=== PATIENT | male | born 1945 | race African-American/Black ===

== ENCOUNTER 2019-05-25 12:06 | Inpatient (IN) | payer OTHER, MEDICARE ==
[~2019-05-25] VITALS: Ht 177.8 cm; Wt 81.3 kg
[2019-05-25 13:27] LABS: Basophils # (auto) 0.1 uL; Basophils % (auto) 1.8 % (0.0-2.0); Eosinophils # (auto) 0.1 uL; Eosinophils % (auto) 1.4 % (0.0-7.0); Hematocrit 49.8 % (41.0-53.0); Hemoglobin 16.5 g/dL (13.5-17.5); Lymphocytes # (auto) 1.9 uL; Lymphocytes % (auto) 36.6 % (10.0-50.0); Mean Corpuscular Hemoglobin 31.2 pg (28.0-32.0); Mean Corpuscular Volume 94.4 fL (80.0-100.0); Monocytes # (auto) 0.4 uL; Monocytes % (auto) 7.2 % (0.0-12.0); Neutrophils # (auto) 2.7 uL; Nucleated Red Blood Cells % 0.1 %; Platelet Count (auto) 292 10^3/uL (140-450); Red Blood Cells 5.28 10^6/uL (4.5-5.90); Red Cell Distribution Width 14.1 % (11.8-14.3); White Blood Cell 5.1 10^3/uL (4.4-10.8)
[2019-05-25 13:42] LABS: INR 0.95 (0.9-1.15); Partial Thromboplastin Time 29.1 sec (23.64-32.05)
[2019-05-25 13:57] LABS: Anion Gap 9 (5-15); Blood Urea Nitrogen 14 mg/dL (7-18); Calcium 9.3 mg/dL (8.5-10.1); Carbon Dioxide 21 mmol/L (21-32); Chloride 109 mmol/L (98-107); Glucose 126 mg/dL (74-106); Sodium 139 mmol/L (136-145)
[2019-05-25 14:04] LABS: Alanine Aminotransferase 27 U/L (16-61); Alkaline Phosphatase 126 U/L (45-117); Aspartate Aminotransferase 15 U/L (15-37); BUN/Creatinine Ratio 10.8; Bilirubin, Total 0.5 mg/dL (0.2-1.0); GFR African American 69 mL/min; GFR Non-African American 57 mL/min; Total Protein 8.1 g/dL (6.4-8.2)
[2019-05-25] MEDS ORDERED: MORPHINE SULF INJ 2 MG/ML SYRINGE 1ML IV PRN ×2 (14:45)
[2019-05-25] MEDS ORDERED: ONDANSETRON HCL 4 MG/2 ML VIAL IV PRN (14:45)
[2019-05-25] MEDS ORDERED: ASPirin-EC 81 mg tab PO ONE (14:45)
[2019-05-25] MEDS ORDERED: HYDROcodone-ACET 5/325MG TAB PO PRN (14:45)
[2019-05-25] MEDS ORDERED: NITROGLYCERIN 0.4 MG SL TAB SL PRN (14:45)
[2019-05-25] MEDS ORDERED: ACETAMINOPHEN 500 MG TAB PO PRN (14:45)
[2019-05-25 15:09] LABS: Cholesterol 228 mg/dL (< 200); Triglycerides 125 mg/dL (< 150)
[2019-05-25 15:11] LABS: HDL Cholesterol 55 mg/dL (40-59); LDL Cholesterol 162 mg/dL (< 100)
[2019-05-25 15:48] LABS: Alcohol, Urine < 3.0 mg/dL (0-5); Amphetamine Screen, Urine NEGATIVE (NEGATIVE); Barbiturate Scree,Urine NEGATIVE (NEGATIVE); Benzodiazephine Screen, Urine NEGATIVE (NEGATIVE); Cannabinoid Screen, Urine NEGATIVE (NEGATIVE); Cocaine Screen, Urine POSITIVE (NEGATIVE); Opiate Scree,Urine NEGATIVE (NEGATIVE); Phencyclidine Screen, Urine NEGATIVE (NEGATIVE)
[2019-05-25 16:09] LABS: Urine Bacteria NONE SEEN /hpf (None Seen); Urine Blood Negative /uL (Negative); Urine Mucus FEW (None Seen); Urine Specific Gravity 1.012 (1.001-1.035); Urine WBC 1 /hpf (0 - 3)
--- NOTE | 2019-05-25 20:35 | NUR ---
Telemetry admit from [facility] BRENSTEIN admitted to Telemetry unit after hand off tool received. Patient oriented to primary RN, unit, room, bed, and unit policies regarding patient care and visiting hours. Patient now on continuous telemetry monitoring, tele box # 35 and telemetry reading on arrival to unit is Sinus Rhythm 73. Patient weighed by bedscale and encouraged to call if they need something. All questions and concerns addressed, patient verbalized understanding.
[2019-05-25] MEDS: ATORVASTATIN 20 MG TAB PO SCH (21:25)
--- NOTE | 2019-05-25 21:25 | NUR ---
Patient requested to call spouse, Janett for password and patient update at [phone]. Janett verbalized understanding and appreciation.
--- NOTE | 2019-05-25 21:30 | NUR ---
Patient's BP at 160/92 HR 75. COLLISION TECHNICIAN Laguerre at the nurse's station made aware and informed. Per COLLISION TECHNICIAN, will review chart and will put in order. Will continue to monitor.
[2019-05-25] MEDS ORDERED: cloNIDine HCL 0.1 MG TAB PO PRN (22:00)
[2019-05-25 22:11] VITALS: BP 160/92
--- NOTE | 2019-05-26 00:05 | NUR ---
RT NOTE: PT PLACED ON CPAP ORDERED FOR NOC, PT NOT TOLERATING AND WANTED MASK REMOVED. PT ON ROOM AIR SPO2 97% WITH NO DISTRESS. PT WILL NOT TOLERATE CPAP AND REMOVED FROM ROOM
[2019-05-26 05:18] VITALS: BP 136/75
[2019-05-26 06:57] LABS: Basophils # (auto) 0.1 uL; Basophils % (auto) 1.1 % (0.0-2.0); Eosinophils # (auto) 0.1 uL; Eosinophils % (auto) 2.1 % (0.0-7.0); Hematocrit 47.3 % (41.0-53.0); Hemoglobin 15.7 g/dL (13.5-17.5); Lymphocytes # (auto) 2.6 uL; Lymphocytes % (auto) 43.6 % (10.0-50.0); Mean Corpuscular Hemoglobin 31.1 pg (28.0-32.0); Mean Corpuscular Hgb Conc. 33.2 g/dL (32.0-36.0); Mean Corpuscular Volume 93.7 fL (80.0-100.0); Monocytes # (auto) 0.5 uL; Monocytes % (auto) 8.1 % (0.0-12.0); Neutrophils # (auto) 2.6 uL; Neutrophils % (auto) 45.1 % (37.0-80.0); Nucleated Red Blood Cells % 0.1 %; Platelet Count (auto) 293 10^3/uL (140-450); Red Blood Cells 5.05 10^6/uL (4.5-5.90); Red Cell Distribution Width 14.1 % (11.8-14.3); White Blood Cell 5.9 10^3/uL (4.4-10.8)
[2019-05-26 07:27] LABS: Potassium 3.8 mmol/L (3.5-5.1)
[2019-05-26 07:36] LABS: BUN/Creatinine Ratio 14.7
[2019-05-26 08:14] VITALS: BP 137/90
[2019-05-26] MEDS: ASPirin-EC 81 mg tab PO SCH (10:32)
[2019-05-26] MEDS: FAMOTIDINE 20 MG TAB PO SCH (10:33)
[2019-05-26] MEDS: MULTIPLE VITAMINS W/ MINERALS TAB PO SCH (10:33)
[2019-05-26 12:00] VITALS: BP 158/92
[2019-05-26] MEDS ORDERED: CLOPIDOGREL BISULFATE 75 MG TAB PO ONE (13:15)
[2019-05-26] MEDS ORDERED: MULTIPLE VITAMINS W/ MINERALS TAB PO ONE (13:30)
[2019-05-26] MEDS ORDERED: METOPROLOL TARTRATE 25 MG TAB PO ONE (13:30)
[2019-05-26 16:29] VITALS: BP 148/87
--- NOTE | 2019-05-26 19:30 | NUR ---
Opening shift note Patient in bed watching TV alert and oriented x 4, verbally coherent, able to make needs known. Patient's respiration even and unlabored, denies pain or any discomfort at this time. Plan of care discussed, patient verbalized understanding. Will continue to monitor.
[2019-05-26] MEDS: ATORVASTATIN 20 MG TAB PO SCH (21:51)
[2019-05-26] MEDS: METOPROLOL TARTRATE 25 MG TAB PO SCH (21:56)
[2019-05-26 22:00] VITALS: BP 137/79
[2019-05-26] MEDS ORDERED: METOPROLOL TARTRATE 25 MG TAB PO SCH (22:00)
[2019-05-27 05:00] VITALS: BP 125/73
--- NOTE | 2019-05-27 07:30 | NUR ---
Opening Shift Note Assumed care of patient, awake and alert. No S/S of distress/SOB or pain. Instructed on POC and to call for assist PRN. Fall precautions in place per protocol. Will continue to monitor for changes Q1hr and PRN.
[2019-05-27 09:00] VITALS: BP 137/77
[2019-05-27] MEDS: MULTIPLE VITAMINS W/ MINERALS TAB PO SCH (09:51)
[2019-05-27] MEDS: ASPirin-EC 81 mg tab PO SCH (09:52)
[2019-05-27] MEDS: METOPROLOL TARTRATE 25 MG TAB PO SCH ×2 (09:52→21:14)
[2019-05-27] MEDS: CLOPIDOGREL BISULFATE 75 MG TAB PO SCH (09:52)
[2019-05-27] MEDS: FAMOTIDINE 20 MG TAB PO SCH (09:52)
[2019-05-27] MEDS ORDERED: CLOPIDOGREL BISULFATE 75 MG TAB PO SCH (10:00)
[2019-05-27 12:55] VITALS: BP 147/77
[2019-05-27 17:00] VITALS: BP 139/86
--- NOTE | 2019-05-27 19:45 | NUR ---
Opening Shift Note Assumed care of patient, awake and alert. No S/S of distress/SOB or pain. Instructed on POC and to call for assist PRN, will continue to monitor.
[2019-05-27] MEDS: ATORVASTATIN 20 MG TAB PO SCH (21:14)
[2019-05-27 22:00] VITALS: BP 147/95
--- NOTE | 2019-05-28 03:00 | NUR ---
RECEIVED REPORT FROM STEWART MONZON. PT RESTING IN BED, NO S/S DISTRESS.
[2019-05-28 05:02] VITALS: BP 121/67
[2019-05-28 08:19] VITALS: BP 129/72
[2019-05-28] MEDS: CLOPIDOGREL BISULFATE 75 MG TAB PO SCH (10:04)
[2019-05-28] MEDS: METOPROLOL TARTRATE 25 MG TAB PO SCH (10:04)
[2019-05-28] MEDS: MULTIPLE VITAMINS W/ MINERALS TAB PO SCH (10:04)
[2019-05-28] MEDS: ASPirin-EC 81 mg tab PO SCH (10:04)
[2019-05-28] MEDS: FAMOTIDINE 20 MG TAB PO SCH (10:06)
[2019-05-28 13:00] VITALS: BP 135/80
--- NOTE | 2019-05-28 13:05 | NUR ---
Spoke to New orders received from Dr. Zheng for d/c home today. New prescriptions obtained and will be given to patient on discharge. Per MD Zheng, he paged child welfare social worker Zuly regarding social service consult and awaiting call back at this time. Will d/c as ordered upon arrangement for .
--- NOTE | 2019-05-28 15:00 | NUR ---
Tele monitor returned to JAZMINE
--- NOTE | 2019-05-28 15:02 | NUR ---
RE: DME I spoke to elementary school social worker Zuly who states [facility] to be supplied. I spoke to MD Zheng and notified him. Prescription for DME for bedside commode and cane obtained and given to [facility]. Awaiting social service consult for STANLEY Albarran
--- NOTE | 2019-05-28 16:07 | NUR ---
Received referral for social worker psychiatric consult for Home Health PT followup. The pt was given a choice letter to determine which agency he wanted. The pt had no preference. The referral was faxed to [facility]. [facility] accepted [facility] pt and will be contacting the pt with 24 to 48 for nursing care. Addendum: 05/31/19 at 1438 by MAGGI HAGAN [facility] accepted the pt and will be starting services on 05/30/19.
--- NOTE | 2019-05-28 16:58 | NUR ---
Patient left Upon entering room, pt not found in room. IV noted in trash can with catheter intact. I called patient at [phone] and notified him that he left without the proper discharge paperwork. He states he "got what he needed and already signed" and left. I reinforced to him that all of his d/c instructions paperwork was not given to him and that he did not sign or obtained the prescriptions the doctor wrote for him including prescription for DME. He states "it's okay" also states himself "took my IV out and left it there". I encouraged patient to come to the hospital to picker tender helper paperwork including prescriptions for metoprolol, Atorvastatin, Clopidrogel and DME: commode and cane but he refused to come back. I instructed the patient regarding risks of leaving without proper paperwork and prescriptions and he continues to refuse to come back stating "I'll probably be back tomorrow". Pt instructed that if condition worsens or does not improve to contact PCP or immediately go to the nearest ER or urgent care for eval he verbalized understanding. I notified MD Zheng. transition rn Scotty notified and states to leave paperwork packet and prescriptions in charge nurse office and he will endorse to oncoming charge and day charge in case patient returns. Paperwork left in charge office including prescriptions. Patient states all personal belongings he took home with him.
== END 2019-05-28 16:58 | disposition home health service (06) | DRG 66 ==
LOC: ER 12:12 → TELE 12:13 → TELE-WESTW 20:37
PROVIDERS: ADMIT Nurse Practitioner Acute Care; ATTEND Internal Medicine Pulmonary Disease
DX: I63.522 Cerebral infarction due to unspecified occlusion or stenosis of left anterior cerebral artery (principal); F14.10 Cocaine abuse, uncomplicated; N18.3 Chronic kidney disease, stage 3 (moderate); R91.1 Solitary pulmonary nodule; E78.5 Hyperlipidemia, unspecified; F17.210 Nicotine dependence, cigarettes, uncomplicated; I25.10 Atherosclerotic heart disease of native coronary artery without angina pectoris; F12.90 Cannabis use, unspecified, uncomplicated; G83.11 Monoplegia of lower limb affecting right dominant side; I13.10 Hypertensive heart and chronic kidney disease without heart failure, with stage 1 through stage 4 chronic kidney disease, or unspecified chronic kidney disease; I67.2 Cerebral atherosclerosis; J84.10 Pulmonary fibrosis, unspecified; Z79.82 Long term (current) use of aspirin; Z79.899 Other long term (current) drug therapy; Z86.73 Personal history of transient ischemic attack (TIA), and cerebral infarction without residual deficits; Z71.6 Tobacco abuse counseling; Z79.02 Long term (current) use of antithrombotics/antiplatelets
CPT/HCPCS: 36415; 70450; 70551; 71045; 71250; 80048; 80053; 80061; 80307; 81001; 82962; 83036; 83735; 84484; 85025; 85610; 85730; 93005; 93306; 93886; 94660; 94761; G0378

== ENCOUNTER 2023-06-07 09:51 | Emergency (ER) | payer MEDICARE, OTHER ==
[~2023-06-07] VITALS: Ht 177.8 cm; Wt 82.7 kg
[2023-06-07 10:28] VITALS: PULSE 91; RESP 20; O2SAT 98
[2023-06-07 10:48] LABS: Basophils # (auto) 0 10 ^3/uL (0-0.2); Basophils % (auto) 0.6 % (0.0-2.0); Eosinophils # (auto) 0.1 10 ^3/uL (0-0.8); Hematocrit 46.4 % (41.0-53.0); Hemoglobin 15.3 g/dL (13.5-17.5); Lymphocytes # (auto) 2.2 10 ^3/uL (0.4-5.4); Lymphocytes % (auto) 37.2 % (10.0-50.0); Mean Corpuscular Hemoglobin 30.9 pg (28.0-32.0); Mean Corpuscular Hgb Conc. 33.1 g/dL (32.0-36.0); Mean Corpuscular Volume 93.4 fL (80.0-100.0); Monocytes # (auto) 0.6 10 ^3/uL (0-1.3); Monocytes % (auto) 9.7 % (0.0-12.0); Neutrophils # (auto) 3.1 10 ^3/uL (1.6-8.6); Neutrophils % (auto) 51.5 % (37.0-80.0); Nucleated Red Blood Cells % 0.2 %; Red Blood Cells 4.96 10^6/uL (4.5-5.90); Red Cell Distribution Width 14.1 % (11.8-14.3)
[2023-06-07 11:03] LABS: INR 1.04 (0.9-1.15); Partial Thromboplastin Time 27.8 SEC (24.5-34.5)
[2023-06-07 11:10] LABS: Albumin 3.7 g/dL (3.4-5.0); Calcium 9.5 mg/dL (8.5-10.1); Magnesium 2.5 mg/dL (1.6-2.6); Potassium 3.2 mmol/L (3.5-5.1)
[2023-06-07 11:13] LABS: Bilirubin, Total 0.4 mg/dL (0.2-1.0); Total Protein 8.3 g/dL (6.4-8.2)
[2023-06-07] MEDS ORDERED: IOHEXOL 350 MG/ML 100ML IJ ONE (11:29)
[2023-06-07 12:30] LABS: Blood Alcohol < 3.0 mg/dL (<10)
[2023-06-07 12:35] LABS: Creatine Kinase IFCC 129 U/L (39-308)
[2023-06-07] MEDS ORDERED: ONDANSETRON HCL 4 MG/2 ML VIAL IV PRN (12:45)
[2023-06-07] MEDS ORDERED: HYDROcodone-ACET 5/325MG TAB PO PRN (12:45)
[2023-06-07] MEDS ORDERED: ACETAMINOPHEN 325 MG TAB PO PRN (12:45)
[2023-06-07 12:52] LABS: Acetaminophen < 2.0 ug/mL (10-30); Salicylate < 1.7 mg/dL (2.8-20.0)
[2023-06-07] MEDS ORDERED: hydrALAZINE HCL 20 MG/ML VL IV PRN (13:00)
[2023-06-07] MEDS ORDERED: ASPirin-EC 81 mg tab PO SCH (13:00)
[2023-06-07] MEDS ORDERED: POTASSIUM EFFERVESENT TAB 25 MEQ GT ONE (13:15)
[2023-06-07] MEDS ORDERED: POTASSIUM CHL 20 Meq TABLET PO ONE (13:15)
[2023-06-07 13:17] LABS: Cholesterol 147 mg/dL (< 200); HDL Cholesterol 44 mg/dL (40-59); LDL Cholesterol 86 mg/dL (< 100); Triglycerides 97 mg/dL (< 150)
[2023-06-07] MEDS ORDERED: SODIUM CHLOR 0.9% PF (SALINE LOCK) 10ML VIAL/SYR IV SCH (14:00)
[2023-06-07 19:30] VITALS: BP 156/82; PULSE 84; RESP 15; TEMP 97.9; O2SAT 99
[2023-06-08] MEDS ORDERED: ASPirin 81 mg TAB PO SCH (10:00)
== END 2023-06-07 15:49 | disposition short-term general hospital (02) ==
LOC: ER 09:51 → UNDOADMIN 12:39 → TELE 12:39 → UNDODISIN 19:49
DX: I63.9 Cerebral infarction, unspecified (principal); F17.210 Nicotine dependence, cigarettes, uncomplicated; I10 Essential (primary) hypertension; I25.10 Atherosclerotic heart disease of native coronary artery without angina pectoris; E11.9 Type 2 diabetes mellitus without complications; E78.5 Hyperlipidemia, unspecified; F14.10 Cocaine abuse, uncomplicated
CPT/HCPCS: 36415; 70450; 70496; 70551; 71045; 80053; 80061; 80320; 80329; 82550; 83735; 83880; 84484; 85025; 85610; 85730; 93005; 93886; 99285; Q9967; 96374; G0378

== ENCOUNTER 2024-07-09 11:56 | Inpatient (IN) | payer MEDICARE, OTHER ==
[~2024-07-09] VITALS: Ht 177.8 cm; Wt 78.8 kg
[2024-07-09] MEDS: SODIUM CHLORIDE 0.9% 1,000 ML IV ONE (12:30)
[2024-07-09 12:53] VITALS: PULSE 92; RESP 18; O2SAT 98
[2024-07-09 13:15] LABS: Basophils # (auto) 0 10 ^3/uL (0-0.2); Basophils % (auto) 0.5 % (0.0-2.0); Eosinophils # (auto) 0 10 ^3/uL (0-0.8); Eosinophils % (auto) 0.7 % (0.0-7.0); Hematocrit 42.2 % (41.0-53.0); Hemoglobin 13.9 g/dL (13.5-17.5); Lymphocytes # (auto) 1.8 10 ^3/uL (0.4-5.4); Lymphocytes % (auto) 25.5 % (10.0-50.0); Mean Corpuscular Hemoglobin 30.6 pg (28.0-32.0); Mean Corpuscular Hgb Conc. 32.8 g/dL (32.0-36.0); Mean Corpuscular Volume 93.3 fL (80.0-100.0); Monocytes # (auto) 0.6 10 ^3/uL (0-1.3); Monocytes % (auto) 9.1 % (0.0-12.0); Neutrophils # (auto) 4.4 10 ^3/uL (1.6-8.6); Neutrophils % (auto) 64.2 % (37.0-80.0); Nucleated Red Blood Cells % 0.1 %; Platelet Count (auto) 310 10^3/uL (140-450); Red Blood Cells 4.53 10^6/uL (4.5-5.90); Red Cell Distribution Width 15.2 % (11.8-14.3); White Blood Cell 6.9 10^3/uL (4.4-10.8)
[2024-07-09 14:30] LABS: Calcium 7.9 mg/dL (8.7-10.4); Carbon Dioxide 20 mmol/L (20-30)
[2024-07-09 14:35] LABS: Glucose 99 mg/dL (74-106)
[2024-07-09 14:50] LABS: Anion Gap 7 (5-15); Chloride 115 mmol/L (98-107); Sodium 142 mmol/L (136-145)
[2024-07-09 15:03] LABS: BUN/Creatinine Ratio 10.5 (10.0-20.0); Blood Urea Nitrogen 10 mg/dL (9-23); Potassium 3.4 mmol/L (3.5-5.1)
[2024-07-09] MEDS ORDERED: MECLIZINE HCL 25 MG TAB PO PRN (16:00)
[2024-07-09] MEDS ORDERED: ACETAMINOPHEN 325 MG TAB PO PRN (16:00)
[2024-07-09 19:30] VITALS: PULSE 74; RESP 17; O2SAT 98
[2024-07-09 19:56] LABS: Urine Bacteria None Seen /hpf (None Seen)
[2024-07-09 20:06] LABS: Urine Blood Negative /uL (Negative); Urine Clarity Clear (Clear); Urine Color Yellow (Yellow); Urine Hyaline Cast FEW /lpf (0 - 2); Urine Mucus FEW (None Seen); Urine Protein, UAD TRACE (Negative); Urine Specific Gravity 1.029 (1.001-1.035); Urine Urobilinogen Normal (Negative); Urine WBC 1 /hpf (0 - 3); Urine pH 5.5 (5.0-9.0)
[2024-07-10 04:39] LABS: Chloride 109 mmol/L (98-107); Potassium 3.7 mmol/L (3.5-5.1); Sodium 141 mmol/L (136-145)
[2024-07-10 04:40] LABS: Anion Gap 8 (5-15); Carbon Dioxide 24 mmol/L (20-30)
[2024-07-10 04:41] LABS: Calcium 9.1 mg/dL (8.7-10.4)
[2024-07-10 04:45] LABS: Glucose 92 mg/dL (74-106)
[2024-07-10 04:46] LABS: BUN/Creatinine Ratio 12.9 (10.0-20.0); Blood Urea Nitrogen 12 mg/dL (9-23)
[2024-07-10 08:30] VITALS: PULSE 69; RESP 14; O2SAT 97
[2024-07-10] MEDS: ENOXAPARIN SOD 40 MG/0.4 ML SYRINGE SC SCH (10:27)
[2024-07-10] MEDS ORDERED: hydrALAZINE HCL 20 MG/ML VL IV PRN (12:00)
[2024-07-10 17:59] VITALS: BP 191/93; PULSE 93; RESP 18; TEMP 98.5; O2SAT 100
[2024-07-10 18:00] VITALS: PULSE 93; RESP 18; O2SAT 100
[2024-07-10] MEDS: METOPROLOL TARTRATE 25 MG TAB PO ONE (18:15)
[2024-07-10 21:00] VITALS: BP 143/78; PULSE 73; RESP 18; TEMP 97.8; O2SAT 96
[2024-07-10] MEDS: METOPROLOL TARTRATE 25 MG TAB PO SCH (21:51)
[2024-07-11 01:00] VITALS: BP 147/84; PULSE 70; RESP 18; TEMP 98.7; O2SAT 95
[2024-07-11] MEDS: ATORVASTATIN 20 MG TAB PO ONE (04:33)
[2024-07-11] MEDS: ASPirin 81 mg TAB PO ONE (04:33)
[2024-07-11 05:00] VITALS: BP 136/79; PULSE 73; RESP 18; TEMP 98; O2SAT 98
[2024-07-11 07:10] LABS: Basophils # (auto) 0 10 ^3/uL (0-0.2); Basophils % (auto) 0.5 % (0.0-2.0); Eosinophils # (auto) 0.1 10 ^3/uL (0-0.8); Eosinophils % (auto) 1.8 % (0.0-7.0); Hematocrit 38.3 % (41.0-53.0); Lymphocytes # (auto) 2.4 10 ^3/uL (0.4-5.4); Lymphocytes % (auto) 32.4 % (10.0-50.0); Mean Corpuscular Hemoglobin 31.2 pg (28.0-32.0); Mean Corpuscular Hgb Conc. 33.9 g/dL (32.0-36.0); Monocytes # (auto) 0.9 10 ^3/uL (0-1.3); Monocytes % (auto) 12.2 % (0.0-12.0); Neutrophils # (auto) 3.9 10 ^3/uL (1.6-8.6); Neutrophils % (auto) 53.1 % (37.0-80.0); Nucleated Red Blood Cells % 0.1 %; Platelet Count (auto) 277 10^3/uL (140-450); Red Blood Cells 4.16 10^6/uL (4.5-5.90); Red Cell Distribution Width 14.9 % (11.8-14.3); White Blood Cell 7.3 10^3/uL (4.4-10.8)
[2024-07-11 07:27] LABS: Alanine Aminotransferase 24 U/L (7-40); Alkaline Phosphatase 123 U/L (46-116); Anion Gap 7 (5-15); Aspartate Aminotransferase 13 U/L (13-40); BUN/Creatinine Ratio 12.9 (10.0-20.0); Blood Urea Nitrogen 11 mg/dL (9-23); Calcium 9.4 mg/dL (8.7-10.4); Carbon Dioxide 24 mmol/L (20-30); Chloride 108 mmol/L (98-107); Glucose 97 mg/dL (74-106); Potassium 3.6 mmol/L (3.5-5.1); Sodium 139 mmol/L (136-145)
[2024-07-11 07:28] LABS: Bilirubin, Total 0.5 mg/dL (0.2-1.0)
[2024-07-11 09:00] VITALS: BP_SYST 157; PULSE 74; RESP 18; TEMP 97.7; O2SAT 96
[2024-07-11] MEDS: ASPirin 81 mg TAB PO SCH (10:04)
[2024-07-11] MEDS ORDERED: ESCI1TAB37 PO (12:04)
[2024-07-11] MEDS ORDERED: IRBE300T43 PO (12:04)
[2024-07-11] MEDS ORDERED: [UNRECOGNIZED DRUG - CODE] PO (12:04)
[2024-07-11] MEDS ORDERED: ATOR40TA52 PO (12:04)
[2024-07-11] MEDS ORDERED: ASPI-543 PO (12:04)
[2024-07-11 13:00] VITALS: BP 126/71; PULSE 65; RESP 18; TEMP 98; O2SAT 96
[2024-07-11 17:00] VITALS: BP 118/66; PULSE 69; RESP 18; TEMP 98.2; O2SAT 98
[2024-07-11 21:00] VITALS: BP 141/77; PULSE 82; RESP 17; TEMP 98.5; O2SAT 98
[2024-07-11 21:36] LABS: LDL Cholesterol 57 mg/dL (< 100); Triglycerides 82 mg/dL (< 150)
[2024-07-11 21:37] LABS: HDL Cholesterol 42 mg/dL (40-59)
[2024-07-11 21:38] LABS: Cholesterol 122 mg/dL (< 200)
[2024-07-11] MEDS: ATORVASTATIN 20 MG TAB PO SCH (22:16)
[2024-07-12] VITALS (7 sets, daily range): BP systolic 116–137; BP diastolic 66–81; PULSE 64–86; RESP 16–21; TEMP 98–98.7; O2SAT 94–100
[2024-07-12] MEDS ORDERED: IOHEXOL 350 MG/ML 100ML IJ ONE (07:17)
[2024-07-12] MEDS ORDERED: hydrALAZINE HCL 20 MG/ML VL IV PRN (13:30)
[2024-07-13] VITALS (13 sets, daily range): BP systolic 124–196; BP diastolic 75–105; PULSE 74–97; RESP 15–20; TEMP 97.6–99.2; O2SAT 94–100
[2024-07-13 07:21] LABS: INR 1.08 (0.9-1.15); Partial Thromboplastin Time 29.6 SEC (24.5-34.5); Prothrombin Time 11.4 sec (9.3-11.8)
[2024-07-13] MEDS: fentaNYL CITRATE 100 MCG/2 ML VL IV ONE (09:15)
[2024-07-13] MEDS: MIDAZOLAM HCL 2MG/2ML 2ml VIAL (1mg/ml) IV ONE (09:15)
[2024-07-13] MEDS: LIDOCAINE VISCOUS 2% 15ML UD PO ONE (09:15)
[2024-07-14] VITALS (8 sets, daily range): BP systolic 117–138; BP diastolic 70–80; PULSE 90–104; RESP 17–20; TEMP 97.5–100.5; O2SAT 95–99
[2024-07-14] MEDS: NIFEdipine ER 30 MG TAB PO SCH (10:43)
[2024-07-15 01:00] VITALS: BP 131/66; PULSE 101; RESP 18; TEMP 99.4; O2SAT 96
[2024-07-15 05:00] VITALS: BP 129/68; PULSE 93; RESP 20; TEMP 98.4; O2SAT 97
[2024-07-15 08:00] VITALS: PULSE 84
[2024-07-15 08:50] VITALS: BP 118/70; PULSE 84; RESP 17; TEMP 98.8; O2SAT 95
== END 2024-07-15 11:10 | disposition home health service (06) | DRG 66 ==
LOC: EDBD 11:56 → ER 11:56 → OVERFLOW 15:58 → EAST 07-10 17:44 → TELE-EAST 07-12 20:25
PROVIDERS: ADMIT Internal Medicine Geriatric Medicine; ATTEND Internal Medicine Geriatric Medicine
PROC: B24BZZ4 Ultrasonography of Heart with Aorta, Transesophageal (ICD-10-PCS; principal; 2024-07-13)
DX: I63.9 Cerebral infarction, unspecified (principal); I10 Essential (primary) hypertension; E78.5 Hyperlipidemia, unspecified; G90.8 Other disorders of autonomic nervous system; F17.210 Nicotine dependence, cigarettes, uncomplicated; E87.6 Hypokalemia; Z79.82 Long term (current) use of aspirin; Z79.899 Other long term (current) drug therapy; Z83.3 Family history of diabetes mellitus; Z82.49 Family history of ischemic heart disease and other diseases of the circulatory system
CPT/HCPCS: 36415; 70450; 70496; 70551; 71045; 80048; 80053; 80061; 81001; 82962; 83036; 83735; 84443; 84484; 85025; 85610; 85730; 86850; 86900; 86901; 93005; 93306; 93312; 93886; 95819; 97110; 97116; 97163; 97530; 99152; G0378; J2250

== ENCOUNTER 2024-07-16 22:18 | Inpatient (IN) | payer OTHER, MEDICARE ==
[~2024-07-16] VITALS: Ht 175.3 cm; Wt 80.6 kg
[~2024-07-16 22:18] MED LIST: ASPI-543 PO; ATOR40TA52 PO; ESCI1TAB37 PO; IRBE300T43 PO; [UNRECOGNIZED DRUG - CODE] PO
[2024-07-16 22:40] VITALS: PULSE 84; RESP 20; O2SAT 96
[2024-07-16] MEDS: SODIUM CHLORIDE 0.9% 1,000 ML IV ONE (23:11)
[2024-07-16 23:24] LABS: Basophils # (auto) 0.1 10 ^3/uL (0-0.2); Basophils % (auto) 0.5 % (0.0-2.0); Eosinophils # (auto) 0.2 10 ^3/uL (0-0.8); Eosinophils % (auto) 1.8 % (0.0-7.0); Hematocrit 39.9 % (41.0-53.0); Hemoglobin 13.1 g/dL (13.5-17.5); Lymphocytes # (auto) 2.5 10 ^3/uL (0.4-5.4); Lymphocytes % (auto) 25.8 % (10.0-50.0); Mean Corpuscular Hemoglobin 30.6 pg (28.0-32.0); Mean Corpuscular Hgb Conc. 32.9 g/dL (32.0-36.0); Mean Corpuscular Volume 93.1 fL (80.0-100.0); Monocytes # (auto) 0.8 10 ^3/uL (0-1.3); Monocytes % (auto) 8.4 % (0.0-12.0); Neutrophils # (auto) 6.2 10 ^3/uL (1.6-8.6); Neutrophils % (auto) 63.5 % (37.0-80.0); Platelet Count (auto) 441 10^3/uL (140-450); Red Blood Cells 4.28 10^6/uL (4.5-5.90); Red Cell Distribution Width 14.7 % (11.8-14.3); White Blood Cell 9.8 10^3/uL (4.4-10.8)
[2024-07-16 23:40] LABS: INR 1.06 (0.9-1.15); Partial Thromboplastin Time 25.6 SEC (24.5-34.5); Prothrombin Time 11.2 sec (9.3-11.8)
[2024-07-16 23:42] LABS: Alanine Aminotransferase 103 U/L (7-40); Albumin 3.9 g/dL (3.2-4.8); Alkaline Phosphatase 117 U/L (46-116); Anion Gap 9 (5-15); Aspartate Aminotransferase 73 U/L (13-40); Bilirubin, Total 0.4 mg/dL (0.2-1.0); Blood Urea Nitrogen 18 mg/dL (9-23); Calcium 9.1 mg/dL (8.7-10.4); Carbon Dioxide 22 mmol/L (20-30); Chloride 108 mmol/L (98-107); Glucose 148 mg/dL (74-106); Potassium 3.6 mmol/L (3.5-5.1); Sodium 139 mmol/L (136-145); Total Protein 7.4 g/dL (5.7-8.2)
[2024-07-17 00:24] LABS: COVID19 ANTIGEN SOFIA FIA NEGATIVE (NEGATIVE)
[2024-07-17] MEDS ORDERED: ACETAMINOPHEN 325 MG TAB PO PRN (02:45)
[2024-07-17] MEDS ORDERED: DOCUSATE SOD 100 MG CAP PO PRN (02:45)
[2024-07-17] MEDS ORDERED: HYDROcodone-ACET 5/325MG TAB PO PRN (02:45)
[2024-07-17] MEDS ORDERED: ONDANSETRON HCL 4 MG/2 ML VIAL IV PRN (02:45)
[2024-07-17] MEDS: SODIUM CHLORIDE 0.9% 1,000 ML IV SCH (03:00)
[2024-07-17] MEDS ORDERED: MORPHINE SULFATE INJ 2 MG/ml SYRG IV PRN (04:45)
[2024-07-17] MEDS ORDERED: NITROGLYCERIN 0.4 MG SL TAB SL PRN (04:45)
[2024-07-17 05:07] LABS: Basophils # (auto) 0 10 ^3/uL (0-0.2); Basophils % (auto) 0.4 % (0.0-2.0); Eosinophils # (auto) 0 10 ^3/uL (0-0.8); Eosinophils % (auto) 0.3 % (0.0-7.0); Hematocrit 40.5 % (41.0-53.0); Hemoglobin 13.3 g/dL (13.5-17.5); Lymphocytes # (auto) 2.1 10 ^3/uL (0.4-5.4); Lymphocytes % (auto) 17.3 % (10.0-50.0); Mean Corpuscular Hemoglobin 30.6 pg (28.0-32.0); Mean Corpuscular Hgb Conc. 32.9 g/dL (32.0-36.0); Mean Corpuscular Volume 92.9 fL (80.0-100.0); Monocytes # (auto) 0.7 10 ^3/uL (0-1.3); Neutrophils # (auto) 9.4 10 ^3/uL (1.6-8.6); Nucleated Red Blood Cells % 0.1 %; Platelet Count (auto) 405 10^3/uL (140-450); Red Blood Cells 4.36 10^6/uL (4.5-5.90); Red Cell Distribution Width 14.8 % (11.8-14.3); White Blood Cell 12.3 10^3/uL (4.4-10.8)
[2024-07-17 05:10] LABS: Urine Bacteria None Seen /hpf (None Seen)
[2024-07-17 05:20] LABS: Urine Blood TRACE /uL (Negative); Urine Clarity Clear (Clear); Urine Color Yellow (Yellow); Urine Mucus FEW (None Seen); Urine Protein, UAD TRACE (Negative); Urine Specific Gravity 1.027 (1.001-1.035); Urine Urobilinogen 3 mg/dL (Negative); Urine WBC 2 /hpf (0 - 3); Urine pH 5.5 (5.0-9.0)
[2024-07-17 05:25] LABS: Alanine Aminotransferase 104 U/L (7-40); Alkaline Phosphatase 126 U/L (46-116); Anion Gap 8 (5-15); Aspartate Aminotransferase 66 U/L (13-40); BUN/Creatinine Ratio 11.4 (10.0-20.0); Bilirubin, Total 0.3 mg/dL (0.2-1.0); Blood Urea Nitrogen 13 mg/dL (9-23); Calcium 9.5 mg/dL (8.7-10.4); Carbon Dioxide 20 mmol/L (20-30); Chloride 108 mmol/L (98-107); Glucose 124 mg/dL (74-106); Potassium 3.8 mmol/L (3.5-5.1); Sodium 136 mmol/L (136-145); Total Protein 7.6 g/dL (5.7-8.2)
[2024-07-17] MEDS: ASPirin 81 mg TAB PO SCH (09:02)
[2024-07-17 10:32] VITALS: PULSE 60; RESP 16; O2SAT 96
[2024-07-17 11:13] VITALS: PULSE 76
[2024-07-17 12:25] VITALS: BP 132/66; PULSE 72; RESP 18; TEMP 98.2; O2SAT 98
[2024-07-17 16:20] VITALS: BP 115/66; PULSE 75; RESP 18; TEMP 98.7; O2SAT 99
[2024-07-17 20:00] VITALS: PULSE 83
[2024-07-17 21:00] VITALS: BP 116/62; PULSE 81; RESP 16; TEMP 98.5; O2SAT 95
[2024-07-17] MEDS ORDERED: LATA0.008 EACHEYE (21:13)
[2024-07-17] MEDS: ATORVASTATIN 20 MG TAB PO SCH (21:31)
[2024-07-18] VITALS (8 sets, daily range): BP systolic 115–137; BP diastolic 59–84; PULSE 67–83; RESP 15–21; TEMP 97.5–99.2; O2SAT 95–99
[2024-07-18 06:46] LABS: Basophils # (auto) 0.1 10 ^3/uL (0-0.2); Basophils % (auto) 0.8 % (0.0-2.0); Eosinophils # (auto) 0.3 10 ^3/uL (0-0.8); Eosinophils % (auto) 3.2 % (0.0-7.0); Hematocrit 35.1 % (41.0-53.0); Hemoglobin 11.8 g/dL (13.5-17.5); Lymphocytes # (auto) 2.4 10 ^3/uL (0.4-5.4); Lymphocytes % (auto) 31.6 % (10.0-50.0); Mean Corpuscular Hemoglobin 31.1 pg (28.0-32.0); Mean Corpuscular Hgb Conc. 33.6 g/dL (32.0-36.0); Mean Corpuscular Volume 92.5 fL (80.0-100.0); Monocytes # (auto) 0.7 10 ^3/uL (0-1.3); Monocytes % (auto) 8.7 % (0.0-12.0); Neutrophils # (auto) 4.3 10 ^3/uL (1.6-8.6); Neutrophils % (auto) 55.7 % (37.0-80.0); Nucleated Red Blood Cells % 0.1 %; Platelet Count (auto) 351 10^3/uL (140-450); Red Blood Cells 3.79 10^6/uL (4.5-5.90); Red Cell Distribution Width 14.3 % (11.8-14.3); White Blood Cell 7.7 10^3/uL (4.4-10.8)
[2024-07-18 07:05] LABS: Alanine Aminotransferase 72 U/L (7-40); Albumin 3.4 g/dL (3.2-4.8); Alkaline Phosphatase 98 U/L (46-116); Carbon Dioxide 23 mmol/L (20-30); Chloride 108 mmol/L (98-107); Glucose 85 mg/dL (74-106)
[2024-07-18 07:06] LABS: Anion Gap 5 (5-15); Aspartate Aminotransferase 37 U/L (13-40); BUN/Creatinine Ratio 15.3 (10.0-20.0); Bilirubin, Total 0.3 mg/dL (0.2-1.0); Blood Urea Nitrogen 13 mg/dL (9-23); Sodium 136 mmol/L (136-145); Total Protein 6.4 g/dL (5.7-8.2)
[2024-07-19] VITALS (8 sets, daily range): BP systolic 132–146; BP diastolic 69–77; PULSE 67–79; RESP 16–20; TEMP 97.6–98.8; O2SAT 97–100
[2024-07-19 07:15] LABS: Basophils # (auto) 0 10 ^3/uL (0-0.2); Basophils % (auto) 0.5 % (0.0-2.0); Eosinophils # (auto) 0.2 10 ^3/uL (0-0.8); Eosinophils % (auto) 2.5 % (0.0-7.0); Hematocrit 33.8 % (41.0-53.0); Hemoglobin 11.3 g/dL (13.5-17.5); Lymphocytes # (auto) 2.1 10 ^3/uL (0.4-5.4); Lymphocytes % (auto) 28.9 % (10.0-50.0); Mean Corpuscular Hemoglobin 30.6 pg (28.0-32.0); Mean Corpuscular Hgb Conc. 33.4 g/dL (32.0-36.0); Mean Corpuscular Volume 91.7 fL (80.0-100.0); Monocytes # (auto) 0.6 10 ^3/uL (0-1.3); Monocytes % (auto) 9.1 % (0.0-12.0); Neutrophils # (auto) 4.2 10 ^3/uL (1.6-8.6); Nucleated Red Blood Cells % 0.1 %; Platelet Count (auto) 383 10^3/uL (140-450); Red Blood Cells 3.69 10^6/uL (4.5-5.90); White Blood Cell 7.1 10^3/uL (4.4-10.8)
[2024-07-19 07:37] LABS: Alanine Aminotransferase 54 U/L (7-40); Albumin 3.5 g/dL (3.2-4.8); Alkaline Phosphatase 93 U/L (46-116); Anion Gap 7 (5-15); Aspartate Aminotransferase 23 U/L (13-40); BUN/Creatinine Ratio 12.9 (10.0-20.0); Blood Urea Nitrogen 11 mg/dL (9-23); Calcium 8.7 mg/dL (8.7-10.4); Carbon Dioxide 23 mmol/L (20-30); Chloride 108 mmol/L (98-107); Glucose 97 mg/dL (74-106); Magnesium 1.9 mg/dL (1.6-2.6); Potassium 3.7 mmol/L (3.5-5.1); Sodium 138 mmol/L (136-145)
[2024-07-19 07:38] LABS: Bilirubin, Total 0.3 mg/dL (0.2-1.0); Total Protein 6.4 g/dL (5.7-8.2)
[2024-07-20] VITALS (8 sets, daily range): BP systolic 122–139; BP diastolic 65–76; PULSE 63–86; RESP 17–20; TEMP 97.7–98.4; O2SAT 95–100
[2024-07-20] MEDS: CITALOPRAM HYDROBR 20 MG TAB PO ONE (13:29)
[2024-07-21] VITALS (8 sets, daily range): BP systolic 116–154; BP diastolic 63–76; PULSE 70–89; RESP 16–18; TEMP 98.2–99.1; O2SAT 95–99
[2024-07-21] MEDS: CITALOPRAM HYDROBR 20 MG TAB PO SCH (10:15)
[2024-07-22 05:00] VITALS: BP 123/65; PULSE 66; RESP 17; TEMP 98.6; O2SAT 98
[2024-07-22 08:00] VITALS: PULSE 68
[2024-07-22 09:00] VITALS: BP 125/66; PULSE 68; RESP 20; TEMP 98.2; O2SAT 98
[2024-07-22 13:00] VITALS: BP 133/68; PULSE 66; RESP 18; TEMP 98.1; O2SAT 98
[2024-07-22 16:38] VITALS: BP 124/69; PULSE 64; RESP 18; TEMP 98.4; O2SAT 99
[2024-07-22 21:00] VITALS: BP 123/69; PULSE 70; RESP 19; TEMP 98.4; O2SAT 97
== END 2024-07-22 22:01 | DRG 683 ==
LOC: EDBD 22:18 → ER 22:18 → EDUNIT# 22:18 → TELE 07-17 04:38 → TELE-WESTW 07-17 08:23
PROVIDERS: ATTEND Internal Medicine Geriatric Medicine
DX: N17.0 Acute kidney failure with tubular necrosis (principal); I47.20 Ventricular tachycardia, unspecified; I69.354 Hemiplegia and hemiparesis following cerebral infarction affecting left non-dominant side; R73.9 Hyperglycemia, unspecified; R74.8 Abnormal levels of other serum enzymes; I10 Essential (primary) hypertension; E78.5 Hyperlipidemia, unspecified; F17.210 Nicotine dependence, cigarettes, uncomplicated; Z20.822 Contact with and (suspected) exposure to COVID-19; F14.10 Cocaine abuse, uncomplicated; R73.03 Prediabetes; Z79.899 Other long term (current) drug therapy; Z82.49 Family history of ischemic heart disease and other diseases of the circulatory system; Z83.3 Family history of diabetes mellitus; Z79.82 Long term (current) use of aspirin
CPT/HCPCS: 36415; 70450; 71045; 80053; 81001; 83735; 83880; 84484; 85025; 85610; 85730; 87081; 87426; 93005; 95819; 97110; 97116; 97163; 97530; G0378

== ENCOUNTER 2025-02-05 12:27 | Inpatient (IN) | payer OTHER, MEDICARE ==
[~2025-02-05] VITALS: Ht 175.3 cm; Wt 83.1 kg
[~2025-02-05 12:27] MED LIST changes: +LATA0.008 EACHEYE
[2025-02-05 13:25] LABS: Urine Bacteria None Seen /hpf (None Seen)
--- NOTE | 2025-02-05 13:26 | ED.PDOC ---
HPI (NEURO) HPI Comments HPI: Poor Historian. HPI: 79 year old male accompanied by step-son presents to the ED with chief complaint of syncope. Patient reports that he was standing while shaving at around 1250 when all of a sudden he woke up on the floor with his step-son helping him. Step-Son relays that the patient had fallen unconscious and was on the ground when he saw him, so he had tried to wake up the patient and ask if he was okay. Step-son states patient does not remember falling at all and this is the third time a syncopal episode has occurred in the past year. Patient notes he did have breakfast today. Patient denies any head injury, dizziness, N/V, chest pain, or SOB. Vitals: Temp: 97.6F BP: 112/64 HR: 104 RR: 22 spO2: 97% Past Medical History: HTN, HLD, CVA Past Surgical History: Denies Social History: Denies cigarette, ETOH, or drug use. Allergies: NKDA REVIEW OF SYSTEMS: CONSTITUTIONAL: Denies acute: fever, diaphoresis, chills, generalized weakness. HEAD: Denies acute: headache, photophobia Eyes: Denies acute: Double vision, vision loss, eye pain, eye discharge. EARS: Denies acute: tinnitus, hearing loss, ear discharge, ear pain, THROAT: Denies acute: sore throat, swelling, difficulty swallowing , pain with swallowing, change in voice. NECK: Denies acute: neck pain, neck swelling, stiff neck. HEART: Denies acute : chest pain, palpitations, LUNGS: Denies acute: SOB, wheezing, cough, hemoptysis ABDOMEN: Denies acute: abdominal pain, Nausea, Vomiting, diarrhea, melena , hematemesis, hematochezia SKIN: Denies acute: rash, redness, lesions, itchiness. EXTREMITIES: Denies acute: calf pain, numbness, tingling, weakness, denies pain in extremity. Denies acute: Low back pain. Neuro: Denies acute: focal neurological deficit, motor or sensory focal neurological deficit, tremors, seizure like activity, confusion, dizziness, change in mental status, loss of bowel or bladder function, cauda equina like symptoms. : Denies acute: dysuria, hematuria, flank pain, increase in urinary frequency. PSYCH: Denies acute: hallucination, suicidal ideation, homicidal ideation. PHYSICAL EXAM: General: no acute distress, awake and alert. Head: normocephalic, atraumatic. Neck: supple, trachea is midline, no swelling. Throat: Normal phonation. Eyes:, no erythema, no purulent discharge, no proptosis, no icterus. Heart: regular rate, regular rhythm, no significant murmur appreciated. Lungs: no apparent respiratory distress, Able to speak in full sentences. No wheezing, no rhonchi, no crackles. No stridors Clear to auscultation bilaterally. Abdomen: non tender to palpation, non distended, soft, no guarding, no rebound, + bowel sounds. Neuro: Awake, Alert, oriented to name, self, situation, follows commands GCS=15. Speech is normal. Skin: no petechia, no purpura, no cyanosis, non-pale, not jaundice. Lower extremities: --no - Pitting edema no deformity, no focal swelling, no calf TTP. Makes eye contact. moves all four extremities. Face: no apparent facial droop. No CVA tenderness to percussion bilaterally. ED COURSE: Chief Complaint: Syncope Time Seen by MD: 13:22 Primary Care Provider: UNKNOWN NAME Reviewed Notes: Nurses Notes, Medications, Allergies Information Source: Patient, Relative (Step-Son) Mode of Arrival: Wheelchair Was a procedure done? Was a procedure done?: No Differential Diagnosis (SZ) General Weakness: Anemia, CVA, Dehydration, Dysrhythmia, Electrolyte imbalance, Encephalopathy, Guillain-Gilman, Hypoglycemia, Hypotension, Hypovolemia, Labyrinthitis, Meniere's disease, Myasthenia gravis, Myocardial infarction, Pulmonary embolus, Renal failure, Repiratory failure, TIA, VBI, Vertigo: central, Vertigo: peripheral, Vestibular neuronitis X-Ray, Labs, Meds, VS Vital Signs Date Time Temp Pulse Resp B/P (MAP) Pulse Ox O2 Delivery O2 Flow Rate FiO2 02/05/25 15:31 85 17 130/80 (97) 96 02/05/25 12:53 89 02/05/25 12:46 97.6 104 22 112/64 (80) 97 97.6 Lab Test 02/05/25 15:35 02/05/25 13:43 02/05/25 12:56 02/05/25 12:52 Range/Units Troponin I High Sensitivity 8 5 4 </=54 ng/L POC Glucose 104 70-106 mg/dl White Blood Count 7.2 4.4-10.8 10^3/uL Red Blood Count 4.62 4.5-5.90 10^6/uL Hemoglobin 14.5 13.5-17.5 g/dL Hematocrit 43.5 41.0-53.0 % Mean Corpuscular Volume 94.1 80.0-100.0 fL Mean Corpuscular Hemoglobin 31.3 28.0-32.0 pg Mean Corpuscular Hemoglobin Concent 33.2 32.0-36.0 g/dL Red Cell Distribution Width 15.4 H 11.8-14.3 % Platelet Count 380 140-450 10^3/uL Mean Platelet Volume 8.0 6.9-10.8 fL Neutrophils (%) (Auto) 33.6 L 37.0-80.0 % Lymphocytes (%) (Auto) 54.5 H 10.0-50.0 % Monocytes (%) (Auto) 9.2 0.0-12.0 % Eosinophils (%) (Auto) 2.4 0.0-7.0 % Basophils (%) (Auto) 0.3 0.0-2.0 % Neutrophils # (Auto) 2.4 1.6-8.6 10 ^3/uL Lymphocytes # (Auto) 3.9 0.4-5.4 10 ^3/uL Monocytes # (Auto) 0.7 0-1.3 10 ^3/uL Eosinophils # (Auto) 0.2 0-0.8 10 ^3/uL Basophils # (Auto) 0 0-0.2 10 ^3/uL Nucleated Red Blood Cells 0.1 % Sodium Level 140 136-145 mmol/L Potassium Level 4.0 3.5-5.1 mmol/L Chloride Level 104 98-107 mmol/L Carbon Dioxide Level 25 20-31 mmol/L Anion Gap 11 5-15 Blood Urea Nitrogen 18 9-23 mg/dL Creatinine 1.30 0.700-1.30 mg/dL Glomerular Filtration Rate Calc 56 >90 mL/min BUN/Creatinine Ratio 13.8 10.0-20.0 Serum Glucose 115 H 74-106 mg/dL Hemoglobin A1c 5.6 <5.7 % A1C Lactic Acid Level 3.8 *H 0.4-2.0 mmol/L Calcium Level 10.5 H 8.7-10.4 mg/dL Magnesium Level 2.4 1.6-2.6 mg/dL Total Bilirubin 0.3 0.2-1.0 mg/dL Aspartate Amino Transferase (AST) 20 13-40 U/L Alanine Aminotransferase (ALT) 36 7-40 U/L Alkaline Phosphatase 147 H 46-116 U/L Creatine Kinase 80 46-171 U/L B-Type Natriuretic Peptide 3.14 0-100 pg/mL Total Protein 7.8 5.7-8.2 g/dL Albumin 4.9 H 3.2-4.8 g/dL Triglycerides Level 104 < 150 mg/dL Cholesterol Level 191 < 200 mg/dL LDL Cholesterol 114 H < 100 mg/dL HDL Cholesterol 59 40-59 mg/dL Thyroid Stimulating Hormone (TSH) 8.44 H 0.55-4.78 uIU/mL Test 02/05/25 12:30 Range/Units Urine Color Yellow Yellow Urine Clarity Clear Clear Urine pH 5.5 5.0-9.0 Urine Specific [place] 1.026 1.001-1.035 Urine Protein Trace H Negative Urine Ketones Negative Negative Urine Blood Negative Negative /uL Urine Nitrite Negative Negative Urine Bilirubin Negative Negative Urine Urobilinogen Normal Negative mg/dL Urine Leukocyte Esterase Negative Negative /uL Urine RBC None seen 0 - 3 /hpf Urine Microscopic WBC 1 0-3 /HPF Urine Squamous Epithelial Cells Few <5 /hpf Urine Bacteria None seen None Seen /hpf Urine Hyaline Casts Mod 0 - 2 /lpf Urine Mucus Few None Seen Urine Glucose Normal Normal mg/dL Urine Opiates Screen Pending Urine Fentanyl Screen Pending Urine Barbiturates Screen Pending Urine Phencyclidine Screen Pending Urine Amphetamines Screen Pending Urine Benzodiazepines Screen Pending Urine Cocaine Screen Pending Urine Cannabinoids Screen Pending Current Medications Medications (Trade) Dose Ordered Sig/Casey Route Start Time Stop Time Status Last Admin Sodium Chloride 1,000 ml @ 1,000 mls/hr Q1H ONCE IV 02/05/25 14:30 02/05/25 15:29 DC 02/05/25 16:10 [place] [id number] Ph: [phone] DIAGNOSTIC IMAGING Diagnostic Imaging Report : [id number] Signed PATIENT: LESTER TAYLOR ACCT: [id number] UNIT: [id number] : 1945 LOC: ER ROOM / BED: / AGE / SEX: 79 / M ADM STATUS: REG ER SERVICE 1312 ORDERING PHYSICIAN: LATANYA ORTIZ DO PROCEDURE(s): HWOCT - HEAD WITHOUT CONTRAST REASON: syncope and collapse ORDER NUMBER(s): [id number], ACCESSION NUMBER(s): [id number] CT HEAD WITHOUT CONTRAST INDICATION: syncope and collapse COMPARISON: CT HEAD WITHOUT CONTRAST on DOS: 07/16/24 TECHNIQUE: CT of the head without intravenous contrast. RADIATION DOSE: CTDIvol: 59.25 mGy, DLP: 949.7 mGy*cm FINDINGS: There is no evidence of acute intracranial hemorrhage, extra-axial collection, mass effect, midline shift, herniation or hydrocephalus. Ex vacuo dilatation in the left lateral ventricle. The ventricles are similar in size and configuration from prior. Mild cerebral atrophy. No evidence of acute large territory infarct. 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 Small old infarct in the left cerebellum. Patchy periventricular and subcortical white matter hypoattenuation is nonspecific commonly due to chronic microvascular ischemia. Atherosclerosis in the V4 vertebral arteries and cavernous ICAs. Scattered dural calcifications are similar from prior. The visualized paranasal sinuses and mastoid air cells are clear. The surrounding soft tissues and osseous structures are unremarkable. IMPRESSION: 1. No evidence of acute intracranial abnormalities. 2. Old left PHAM and SALES OFFICE MANAGER territory infarcts. Moderate to advanced chronic microvascular ischemia. ATED BY: HAM RENO DO DICTATED DATE/TIME: 02/05/251348 SIGNED BY: HAM RENO DO SIGNED DATE/TIME: 02/05/25 134 CC: [address] [address] Ph: [phone] DIAGNOSTIC IMAGING Diagnostic Imaging Report : [id number] Signed PATIENT: LESTER TAYLOR ACCT: [id number] UNIT: [id number] : 1945 LOC: OVERFLOW ROOM / BED: [address] [place] [address] A AGE / SEX: 79 / M ADM STATUS: ADM IN SERVICE 1549 ORDERING PHYSICIAN: OTTO PRADO PROCEDURE(s): CXR1 - CHEST XRAY 1 VIEW REASON: syncope ORDER NUMBER(s): [id number], ACCESSION NUMBER(s): [id number] CHEST RADIOGRAPH Indication: syncope Technique: Single frontal view of the chest was obtained COMPARISON: XY CHEST PORTABLE on DOS: 07/16/24, XY CHEST PORTABLE on DOS: 07/13/24, XY CHEST XRAY 1 VIEW on DOS: 06/07/23 FINDINGS: Lines and Tubes: None Lungs: Clear Pleura: No effusion. No pneumothorax. Cardiomediastinal contours: Unremarkable Bones: Unremarkable IMPRESSION: No acute disease. ATED BY: TREY PIPER MD DICTATED DATE/TIME: 02/05/251613 SIGNED BY: TREY PIPER MD SIGNED DATE/TIME: 02/05/251613 CC: Time of 1ST Reevaluation: 14:22 Reevaluation 1ST: Unchanged Patient Education/Counseling: Diagnosis, Treatment Family Education/Counseling: Diagnosis, Treatment Departure 1 Departure Time of Disposition: 13:31 Impression: Primary Impression: Syncope and collapse Additional Impressions: Elevated lactic acid level Thyroid disease Disposition: ADMITTED INPATIENT Admit to: [facility] Condition: Guarded Discharged With: Self Critical Care Note Critical Care Time?: No I personally scribed for LATANYA ORTIZ DO ([email or web address]) on 02/05/25 at 13:26. Electronically submitted by Ajit Jean ([email or web address]). LATANYA ORTIZ DO Feb 05, 2025 13:26
[2025-02-05 13:33] LABS: Alanine Aminotransferase 36 U/L (7-40); Anion Gap 11 (5-15); Aspartate Aminotransferase 20 U/L (13-40); BUN/Creatinine Ratio 13.8 (10.0-20.0); Bilirubin, Total 0.3 mg/dL (0.2-1.0); Blood Urea Nitrogen 18 mg/dL (9-23); Carbon Dioxide 25 mmol/L (20-31); Chloride 104 mmol/L (98-107); Magnesium 2.4 mg/dL (1.6-2.6); Sodium 140 mmol/L (136-145); Total Protein 7.8 g/dL (5.7-8.2)
[2025-02-05 13:36] LABS: Basophils # (auto) 0 10 ^3/uL (0-0.2); Basophils % (auto) 0.3 % (0.0-2.0); Eosinophils # (auto) 0.2 10 ^3/uL (0-0.8); Eosinophils % (auto) 2.4 % (0.0-7.0); Hematocrit 43.5 % (41.0-53.0); Hemoglobin 14.5 g/dL (13.5-17.5); Lymphocytes # (auto) 3.9 10 ^3/uL (0.4-5.4); Lymphocytes % (auto) 54.5 % (10.0-50.0); Mean Corpuscular Hemoglobin 31.3 pg (28.0-32.0); Mean Corpuscular Hgb Conc. 33.2 g/dL (32.0-36.0); Mean Corpuscular Volume 94.1 fL (80.0-100.0); Monocytes # (auto) 0.7 10 ^3/uL (0-1.3); Monocytes % (auto) 9.2 % (0.0-12.0); Neutrophils # (auto) 2.4 10 ^3/uL (1.6-8.6); Neutrophils % (auto) 33.6 % (37.0-80.0); Nucleated Red Blood Cells % 0.1 %; Platelet Count (auto) 380 10^3/uL (140-450); Red Blood Cells 4.62 10^6/uL (4.5-5.90); Red Cell Distribution Width 15.4 % (11.8-14.3); White Blood Cell 7.2 10^3/uL (4.4-10.8)
[2025-02-05 13:37] LABS: Lactic Acid w/Reflex 3.8 mmol/L (0.4-2.0)
[2025-02-05 13:39] LABS: Albumin 4.9 g/dL (3.2-4.8); Alkaline Phosphatase 147 U/L (46-116); Calcium 10.5 mg/dL (8.7-10.4); Glucose 115 mg/dL (74-106)
[2025-02-05 13:42] LABS: Urine Blood Negative /uL (Negative); Urine Clarity Clear (Clear); Urine Color Yellow (Yellow); Urine Hyaline Cast MOD /lpf (0 - 2); Urine Mucus FEW (None Seen); Urine Protein, UAD TRACE (Negative); Urine Specific Gravity 1.026 (1.001-1.035); Urine Squamous Epithelial Cell FEW /hpf (<5); Urine Urobilinogen Normal (Negative); Urine WBC 1 /HPF (0-3); Urine pH 5.5 (5.0-9.0)
--- NOTE | 2025-02-05 13:51 | DVH ---
CT HEAD WITHOUT CONTRAST INDICATION: syncope and collapse COMPARISON: CT HEAD WITHOUT CONTRAST on DOS: 07/16/24 TECHNIQUE: CT of the head without intravenous contrast. RADIATION DOSE: CTDIvol: 59.25 mGy, DLP: 949.7 mGy*cm FINDINGS: There is no evidence of acute intracranial hemorrhage, extra-axial collection, mass effect, midline s hift, herniation or hydrocephalus. Ex vacuo dilatation in the left lateral ventricle. The ventricles are similar in size and configurati on from prior. Mild cerebral atrophy. No evidence of acute large territory infarct. 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 Small old inf arct in the left cerebellum. Patchy periventricular and subcortical white matter hypoattenuation is n onspecific commonly due to chronic microvascular ischemia. Atherosclerosis in the V4 vertebral arteri es and cavernous ICAs. Scattered dural calcifications are similar from prior. The visualized paranasal sinuses and mastoid air cells are clear. The surrounding soft tissues and osseous structures are unremarkable. IMPRESSION: 1. No evidence of acute intracranial abnormalities. 2. 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 Moderate to advanced chronic microvascular ischemia.
[2025-02-05] MEDS ORDERED: ONDANSETRON HCL 4 MG/2 ML VIAL IV PRN (15:45)
[2025-02-05] MEDS: SODIUM CHLORIDE 0.9% 1,000 ML IV SCH (15:45)
[2025-02-05] MEDS ORDERED: ACETAMINOPHEN 325 MG TAB PO PRN (15:45)
--- NOTE | 2025-02-05 15:53 | DVHHP2 ---
History of Present Illness Reason for Visit: Syncope History of Present Illness Josh Morales is an 79-year-old male with past medical history of hypertension, hyperlipidemia, and CVA with no deficits who presents to the ED with syncope that occurred today. Patient's son Gerald and at the chair side stated that the patient had called out to them and the patient's son caught his fall. Patient's son stated that he did not land on any body part and was able to hold him. He then called EMS to have the patient transported to the ED. patient's son states that this is the 3rd episode within this year. Also states that the patient has seen a primary care physician had an MRI done of the lung and has an upcoming appointment for the results. Patient denies any recent trauma or injury chest pain, fever, chills, nausea, vomiting, diarrhea, abdominal pain, numbness, or tingling. 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 Past Surgical History: None Family History: None Smoke: No ALCOHOL: none Drugs: None Lives: with Family Domestic Violence: Neg Review of Systems Constitutional: Yes: Other (Syncope) Allergies: Coded Allergies: NO KNOWN ALLERGIES (Unverified , 05/25/19) Medications Current Medications Medications Dose Ordered Sig/Casey Route Start Time Stop Time Status Last Admin Dose Admin Ceftriaxone Sodium 50 ml @ 100 mls/hr DAILY@09 IV 02/06/25 09:00 UNV Sodium Chloride 1,000 ml @ 100 mls/hr Q10H IV 02/05/25 15:45 UNV Ondansetron HCl 4 mg Q4HP PRN IV 02/05/25 15:45 UNV Enoxaparin Sodium 30 mg DAILY SC 02/06/25 10:00 UNV Acetaminophen 650 mg Q6HP PRN PO 02/05/25 15:45 UNV Exam Vital Signs Vital Signs Date Time Temp Pulse Resp B/P (MAP) Pulse Ox O2 Delivery O2 Flow Rate FiO2 02/05/25 15:31 85 17 130/80 (97) 96 02/05/25 12:46 97.6 97.6 General Appearance: Alert, Oriented X3, Cooperative, No acute distress HEENT: Atraumatic, PERRLA, EOMI, Mucous membr. moist/pink Respiratory: Normal air movement Cardiovascular: Normal S1, Normal S2, No murmurs Abdominal: Normal bowel sounds, Soft, No tenderness, No hepatospenomegaly, No masses Neuro: Normal speech, Normal tone, Sensation intact Psych/Mental Status: Mental status NL, Mood NL Labs/Xrays Labs Test 02/05/25 13:43 02/05/25 12:56 02/05/25 12:52 02/05/25 12:30 Range/Units Troponin I High Sensitivity 5 </=54 ng/L POC Glucose 104 70-106 mg/dl White Blood Count 7.2 4.4-10.8 10^3/uL Red Blood Count 4.62 4.5-5.90 10^6/uL Hemoglobin 14.5 13.5-17.5 g/dL Hematocrit 43.5 41.0-53.0 % Mean Corpuscular Volume 94.1 80.0-100.0 fL Mean Corpuscular Hemoglobin 31.3 28.0-32.0 pg Mean Corpuscular Hemoglobin Concent 33.2 32.0-36.0 g/dL Red Cell Distribution Width 15.4 H 11.8-14.3 % Platelet Count 380 140-450 10^3/uL Mean Platelet Volume 8.0 6.9-10.8 fL Neutrophils (%) (Auto) 33.6 L 37.0-80.0 % Lymphocytes (%) (Auto) 54.5 H 10.0-50.0 % Monocytes (%) (Auto) 9.2 0.0-12.0 % Eosinophils (%) (Auto) 2.4 0.0-7.0 % Basophils (%) (Auto) 0.3 0.0-2.0 % Neutrophils # (Auto) 2.4 1.6-8.6 10 ^3/uL Lymphocytes # (Auto) 3.9 0.4-5.4 10 ^3/uL Monocytes # (Auto) 0.7 0-1.3 10 ^3/uL Eosinophils # (Auto) 0.2 0-0.8 10 ^3/uL Basophils # (Auto) 0 0-0.2 10 ^3/uL Nucleated Red Blood Cells 0.1 % Sodium Level 140 136-145 mmol/L Potassium Level 4.0 3.5-5.1 mmol/L Chloride Level 104 98-107 mmol/L Carbon Dioxide Level 25 20-31 mmol/L Anion Gap 11 5-15 Blood Urea Nitrogen 18 9-23 mg/dL Creatinine 1.30 0.700-1.30 mg/dL Glomerular Filtration Rate Calc 56 >90 mL/min BUN/Creatinine Ratio 13.8 10.0-20.0 Serum Glucose 115 H 74-106 mg/dL Lactic Acid Level 3.8 *H 0.4-2.0 mmol/L Calcium Level 10.5 H 8.7-10.4 mg/dL Magnesium Level 2.4 1.6-2.6 mg/dL Total Bilirubin 0.3 0.2-1.0 mg/dL Aspartate Amino Transferase (AST) 20 13-40 U/L Alanine Aminotransferase (ALT) 36 7-40 U/L Alkaline Phosphatase 147 H 46-116 U/L Creatine Kinase 80 46-171 U/L B-Type Natriuretic Peptide 3.14 0-100 pg/mL Total Protein 7.8 5.7-8.2 g/dL Albumin 4.9 H 3.2-4.8 g/dL Urine Color Yellow Yellow Urine Clarity Clear Clear Urine pH 5.5 5.0-9.0 Urine Specific [place] 1.026 1.001-1.035 Urine Protein Trace H Negative Urine Ketones Negative Negative Urine Blood Negative Negative /uL Urine Nitrite Negative Negative Urine Bilirubin Negative Negative Urine Urobilinogen Normal Negative mg/dL Urine Leukocyte Esterase Negative Negative /uL Urine RBC None seen 0 - 3 /hpf Urine Microscopic WBC 1 0-3 /HPF Urine Squamous Epithelial Cells Few <5 /hpf Urine Bacteria None seen None Seen /hpf Urine Hyaline Casts Mod 0 - 2 /lpf Urine Mucus Few None Seen Urine Glucose Normal Normal mg/dL CT HEAD WITHOUT CONTRAST INDICATION: syncope and collapse COMPARISON: CT HEAD WITHOUT CONTRAST on DOS: 07/16/24 TECHNIQUE: CT of the head without intravenous contrast. RADIATION DOSE: CTDIvol: 59.25 mGy, DLP: 949.7 mGy*cm FINDINGS: There is no evidence of acute intracranial hemorrhage, extra-axial collection, mass effect, midline shift, herniation or hydrocephalus. Ex vacuo dilatation in the left lateral ventricle. The ventricles are similar in size and configuration from prior. Mild cerebral atrophy. No evidence of acute large territory infarct. Old left ENVIRONMENTAL COMPLIANCE MANAGER and PHAM territory infarcts. Small old infarct in the left cerebellum. Patchy periventricular and subcortical white matter hypoattenuation is nonspecific commonly due to chronic microvascular ischemia. Atherosclerosis in the V4 vertebral arteries and cavernous ICAs. Scattered dural calcifications are similar from prior. The visualized paranasal sinuses and mastoid air cells are clear. The surrounding soft tissues and osseous structures are unremarkable. IMPRESSION: 1. No evidence of acute intracranial abnormalities. 2. Old left PHAM and ENVIRONMENTAL COMPLIANCE MANAGER territory infarcts. Moderate to advanced chronic microvascular ischemia. Assessment/Plan Assessment/Plan Assessment Autonomic imbalance Lactic acidosis rule out sepsis History of hypertension History of hyperlipidemia History of CVA with no deficits Plan Admit to tele for cardiac monitoring NS 1 L given in ED CK CT head noted EKG Troponin negative x2 Mag level Lactic UA BNP Blood cultures Urine cultures IV antibiotics -ceftriaxone IV fluids TSH Echo ordered Lipid panel DVT prophylaxis- Lovenox Hemoglobin A1c Vitamin-D level Vitamin-B level Chest x-ray ordered Diet Orthostatics Discussed plan of care with patient, patient's son, patient's and nurse Home medications reconciled Plan discussed with: Patient, Spouse, Son My Orders 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 Procedure Category Date Status Time Ceftriaxone 1gm/50ml PHA 02/06/25 Logged D5w (Rocephin) 09:00 Ceftriaxone 1gm/50ml PHA 02/05/25 Logged D5w (Rocephin) 15:45 Sodium Chloride 0.9% PHA 02/05/25 Logged 15:45 Blood Culture ELIZABETH 02/05/25 Logged 15:36 Urine Bacterial ELIZABETH 02/05/25 Logged Culture 15:36 Echo 2d Mode Cardiac US 02/05/25 Logged DOP 15:36 Thyroid Stimulating LAB 02/05/25 Logged Hormone 15:36 Lipid Panel LAB 02/05/25 Logged 15:36 Drug Screen LAB 02/05/25 Logged 15:36 Admit ADMIT 02/05/25 Transmitted 15:36 Allergies DEBBIE 02/05/25 In Process 15:36 Code Status CODE 02/05/25 Transmitted 15:36 Ondansetron Hcl PHA 02/05/25 Logged (Zofran) 15:45 Complete Blood Count LAB 02/06/25 Verified 04:00 Comprehensive LAB 02/06/25 Verified Metabolic Panel 04:00 Cardiac DIET 02/05/25 Transmitted Diet-2gna,Lofat,Lochol Dinner Enoxaparin Sodium PHA 02/06/25 Logged (Lovenox) 10:00 Acetaminophen Tablet PHA 02/05/25 Logged (Tylenol Tablet) 15:45 Hemoglobin A1c LAB 02/05/25 Verified 15:40 Vitamin B1 (Thiamine) LAB 02/05/25 Verified 15:40 Vitamin D 25-Hydroxy LAB 02/05/25 Verified D2 + D3 15:40 Date of Service: Feb 05, 2025 Billing Provider: OTTO PRADO Common Visit Codes: [id number] INP/OBS CARE (HIGH) OTTO PRADO Feb 05, 2025 15:53
[2025-02-05] MEDS: SODIUM CHLORIDE 0.9% 1,000 ML IV ONE (16:10)
--- NOTE | 2025-02-05 16:16 | DVH ---
CHEST RADIOGRAPH Indication: syncope Technique: Single frontal view of the chest was obtained COMPARISON: XY CHEST PORTABLE on DOS: 07/16/24, XY CHEST PORTABLE on DOS: 07/13/24, XY CHEST XRAY 1 VIE W on DOS: 06/07/23 FINDINGS: Lines and Tubes: None Lungs: Clear Pleura: No effusion. No pneumothorax. Cardiomediastinal contours: Unremarkable Bones: Unremarkable IMPRESSION: No acute disease.
[2025-02-05 16:20] LABS: Triglycerides 104 mg/dL (< 150)
[2025-02-05 16:22] LABS: Cholesterol 191 mg/dL (< 200); HDL Cholesterol 59 mg/dL (40-59)
[2025-02-05 16:23] LABS: LDL Cholesterol 114 mg/dL (< 100)
[2025-02-05] MEDS: cefTRIAXone 1GM/50ML D5W 50 ML IV ONE (17:19)
[2025-02-05 17:57] LABS: Cocaine Screen, Urine Neg (NEGATIVE)
[2025-02-05 17:58] LABS: Cannabinoid Screen, Urine Neg (NEGATIVE)
[2025-02-05 18:02] LABS: Amphetamine Screen, Urine Neg (NEGATIVE); Barbiturate Scree,Urine Neg (NEGATIVE); Benzodiazephine Screen, Urine Neg (NEGATIVE); Opiate Scree,Urine Neg (NEGATIVE); Phencyclidine Screen, Urine Neg (NEGATIVE)
[2025-02-05 18:30] VITALS: BP 148/68; PULSE 73; RESP 18; TEMP 98.1; O2SAT 97
[2025-02-05 18:43] VITALS: PULSE 73; RESP 18; O2SAT 97
[2025-02-05 18:46] VITALS: BP 148/68; PULSE 72; RESP 18; TEMP 98.1; O2SAT 97
[2025-02-05 20:00] VITALS: PULSE 70; PULSE 77; RESP 18; O2SAT 99
[2025-02-05 21:00] VITALS: BP 146/64; PULSE 77; RESP 18; TEMP 98.2; O2SAT 99
[2025-02-06] VITALS (9 sets, daily range): BP systolic 122–148; BP diastolic 60–80; PULSE 65–96; RESP 16–18; TEMP 98.1–99.3; O2SAT 94–100
[2025-02-06 06:50] LABS: Basophils # (auto) 0 10 ^3/uL (0-0.2); Basophils % (auto) 0.6 % (0.0-2.0); Eosinophils # (auto) 0.1 10 ^3/uL (0-0.8); Eosinophils % (auto) 1.6 % (0.0-7.0); Hematocrit 38.8 % (41.0-53.0); Hemoglobin 12.9 g/dL (13.5-17.5); Lymphocytes # (auto) 2.7 10 ^3/uL (0.4-5.4); Lymphocytes % (auto) 39.9 % (10.0-50.0); Mean Corpuscular Hemoglobin 30.8 pg (28.0-32.0); Mean Corpuscular Hgb Conc. 33.1 g/dL (32.0-36.0); Mean Corpuscular Volume 93.1 fL (80.0-100.0); Monocytes # (auto) 0.7 10 ^3/uL (0-1.3); Monocytes % (auto) 9.8 % (0.0-12.0); Neutrophils # (auto) 3.3 10 ^3/uL (1.6-8.6); Neutrophils % (auto) 48.1 % (37.0-80.0); Platelet Count (auto) 296 10^3/uL (140-450); Red Blood Cells 4.17 10^6/uL (4.5-5.90); Red Cell Distribution Width 15.3 % (11.8-14.3); White Blood Cell 6.8 10^3/uL (4.4-10.8)
[2025-02-06 07:10] LABS: Alanine Aminotransferase 25 U/L (7-40); Anion Gap 9 (5-15); BUN/Creatinine Ratio 9.8 (10.0-20.0); Blood Urea Nitrogen 9 mg/dL (9-23); Calcium 9.5 mg/dL (8.7-10.4); Carbon Dioxide 22 mmol/L (20-31); Chloride 106 mmol/L (98-107); Glucose 87 mg/dL (74-106); Potassium 4.2 mmol/L (3.5-5.1); Sodium 137 mmol/L (136-145)
[2025-02-06 07:11] LABS: Albumin 4.1 g/dL (3.2-4.8); Aspartate Aminotransferase 27 U/L (13-40)
[2025-02-06 07:12] LABS: Bilirubin, Total 0.5 mg/dL (0.2-1.0)
[2025-02-06 07:15] LABS: Alkaline Phosphatase 117 U/L (46-116)
--- NOTE | 2025-02-06 07:36 | ECG ---
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
[2025-02-06] MEDS: ENOXAPARIN SOD 40 MG/0.4 ML SYRINGE SC SCH (09:02)
[2025-02-06] MEDS: cefTRIAXone 1GM/50ML D5W 50 ML IV SCH (09:03)
--- NOTE | 2025-02-06 20:34 | DVHSR ---
APPROVED REPORT EXAM: LIMITED Two-dimensional and M-mode echocardiogram with Doppler and color Doppler. Blood Pressure: 134/68 mmHg INDICATION Syncope RISK FACTORS Height: 69, Weight: 178 DIMENSIONS LVDd4.5 (3.8-5.7cm)LA (2D) (1.9-4.0cm)Aortic Root3.7 (2.0-3.7cm) LVDs3.2 (2.5-4.0cm)LA (MM) (1.9-4.0cm)Aortic Cusp Exc1.8 (1.5-2.0cm) EF (%) 56.0 (55-70%)Rt. Atrium (1.9-4.0cm)Asc. Aorta cm IVSd1.1 (0.7-1.1cm)RV (D) (1.8-2.4cm) PWd1.3 (0.7-1.1cm) Mitral Valve MitralMitral Stenosis E wave0.69m/sMV Mean GR.mmHg A wave1.18m/sMV Peak GR.mmHg E/A ratio0.62D MVAcm2 DECEL [id number] 1/2 Llgg35to IVRTmsDop MVA7.02cm2 Aortic Valve Aortic ValveAortic Stenosis V11.54m/Jenise Mean GR.6mmHg V21.61m/Jenise Peak GR.10mmHg LVOT Diameter2.0 (1.8-2.4cm)Doppler AVA3.00cm2 Other Information Technically limited study due to body habitus, patient position and patient had a persistent cough. Conclusion MILD LVH AND MILD LV DIASTOLIC DYSFUNCTION LV EF IS 65% NORMAL VALVES NO EFFUSION AORTIC SCLEROSIS
--- NOTE | 2025-02-06 22:28 | DVHPN2 ---
Subjective The patient is seen and examined at bedside. Still feels dizzy Reviewed: Care Plan, H&P, Labs, Medications, Previous Orders, Radiology Changes from previous H/P or p: No Changes Objective Vitals Vital Signs Date Time Temp Pulse Resp B/P (MAP) Pulse Ox O2 Delivery O2 Flow Rate FiO2 02/06/25 16:47 98.1 65 17 122/80 (94) 94 98.1 02/06/25 08:00 Room Air* 0 21 Intake/Output Intake and Output 02/06/25 07:00 Intake Total 1490 ml Output Total 150 ml Balance 1340 ml Intake Oral 440 ml IV Total 1050 ml Output Urine Total 150 ml General Appearance: Alert, No acute distress HEENT: Atraumatic, PERRLA, EOMI, Mucous membr. moist/pink Neck: Supple Lungs: Clear to auscultation, Normal air movement Cardiovascular: Regular rate, Normal S1, Normal S2, No murmurs, Gallops, Rubs Abdomen: Normal bowel sounds, Soft, No tenderness Neuro: Cranial nerves 3-12 NL Psych/Mental Status: Mental status NL Medications Current Medications Medications Dose Ordered Sig/Casey Route Start Time Stop Time Status Last Admin Dose Admin Ceftriaxone Sodium 50 ml @ 100 mls/hr DAILY@09 IV 02/06/25 09:00 02/06/25 09:03 100 MLS/HR Sodium Chloride 1,000 ml @ 100 mls/hr Q10H IV 02/05/25 15:45 02/06/25 12:48 100 MLS/HR Ondansetron HCl 4 mg Q4HP PRN IV 02/05/25 15:45 Enoxaparin Sodium 40 mg DAILY SC 02/06/25 10:00 02/06/25 09:02 40 MG Acetaminophen 650 mg Q6HP PRN PO 02/05/25 15:45 Laboratory Results Laboratory Tests 02/06/25 05:51 Chemistry Test 02/06/25 05:51 Albumin 4.1 g/dL (3.2-4.8) Calcium Level 9.5 mg/dL (8.7-10.4) Total Protein 7.0 g/dL (5.7-8.2) LFT Test 02/06/25 05:51 Alanine Aminotransferase (ALT) 25 U/L (7-40) Alkaline Phosphatase 117 U/L (46-116) H Aspartate Amino Transferase (AST) 27 U/L (13-40) Total Bilirubin 0.5 mg/dL (0.2-1.0) Urinalysis Test 02/05/25 12:30 Urine Color Yellow (Yellow) Urine Clarity Clear (Clear) Urine pH 5.5 (5.0-9.0) Urine Specific [place] 1.026 (1.001-1.035) Urine Protein Trace (Negative) H Urine Ketones Negative (Negative) Urine Blood Negative /uL (Negative) Urine Nitrite Negative (Negative) Urine Bilirubin Negative (Negative) Urine Urobilinogen Normal mg/dL (Negative) Urine Leukocyte Esterase Negative /uL (Negative) Urine RBC None seen /hpf (0 - 3) Urine Microscopic WBC 1 /HPF (0-3) Urine Squamous Epithelial Cells Few /hpf (<5) Urine Bacteria None seen /hpf (None Seen) Urine Hyaline Casts Mod /lpf (0 - 2) Urine Mucus Few (None Seen) Urine Glucose Normal mg/dL (Normal) Microbiology Microbiology Date/Time Source Procedure Growth Status 02/05/25 16:16 Blood Blood Culture - Preliminary NO GROWTH AFTER 24 HOURS OF INCUBATION. Resulted 02/05/25 12:30 Voided Urine Urine Culture - Preliminary Resulted Labs and/or images reviewed: Labs reviewed by me Assessment/Plan Assessment/Plan Autonomic imbalance Lactic acidosis rule out sepsis History of hypertension History of hyperlipidemia History of CVA with no deficits Continuing current management. Continuing with IV fluid. Continuing with IV antibiotics. We will follow up with culture. CT head review was negative for acute CVA. We will get the patient to be out of bed and ambulate when dizziness improved. This medical document was created using an electronic medical record system with [employer]rency direct computerized dictation system. Although this document has been carefully reviewed, there may still be some phonetic and typographical errors. These areas are purely typographical due to imperfections of the software programs, and do not reflect any compromise in the patient's medical care. Plan discussed with: Patient Date of Service: Feb 06, 2025 Billing Provider: DONNA RAMIREZ MD Common Visit Codes: [id number] INP/OBS CARE(HIGH) DONNA RAMIREZ MD Feb 06, 2025 22:28
[2025-02-07] VITALS (8 sets, daily range): BP systolic 126–150; BP diastolic 59–80; PULSE 64–84; RESP 15–20; TEMP 97.8–98.5; O2SAT 95–100
[2025-02-07 06:21] LABS: Basophils # (auto) 0 10 ^3/uL (0-0.2); Basophils % (auto) 0.7 % (0.0-2.0); Eosinophils # (auto) 0.2 10 ^3/uL (0-0.8); Eosinophils % (auto) 2.8 % (0.0-7.0); Hematocrit 34.6 % (41.0-53.0); Hemoglobin 11.7 g/dL (13.5-17.5); Lymphocytes # (auto) 2.5 10 ^3/uL (0.4-5.4); Mean Corpuscular Hemoglobin 31.1 pg (28.0-32.0); Mean Corpuscular Hgb Conc. 33.9 g/dL (32.0-36.0); Mean Corpuscular Volume 91.6 fL (80.0-100.0); Monocytes # (auto) 0.5 10 ^3/uL (0-1.3); Neutrophils # (auto) 2.8 10 ^3/uL (1.6-8.6); Neutrophils % (auto) 46.5 % (37.0-80.0); Nucleated Red Blood Cells % 0.1 %; Platelet Count (auto) 269 10^3/uL (140-450); Red Blood Cells 3.78 10^6/uL (4.5-5.90); Red Cell Distribution Width 14.9 % (11.8-14.3); White Blood Cell 6.1 10^3/uL (4.4-10.8)
[2025-02-07 06:31] LABS: Anion Gap 9 (5-15); Calcium 9.7 mg/dL (8.7-10.4); Carbon Dioxide 22 mmol/L (20-31); Potassium 3.9 mmol/L (3.5-5.1); Sodium 141 mmol/L (136-145)
[2025-02-07 06:37] LABS: BUN/Creatinine Ratio 11.6 (10.0-20.0); Blood Urea Nitrogen 11 mg/dL (9-23); Glucose 97 mg/dL (74-106)
[2025-02-07 06:39] LABS: Chloride 110 mmol/L (98-107)
--- NOTE | 2025-02-07 11:15 | DVHPN2 ---
Progress Note Date Seen: Feb 07, 2025 Medical Necessity Reason Pt with a Central, PICC or Fol: No Subjective Patient reports: No new complaints Review of Systems: HEENT:Normal, CVS:Normal, RESPIRATORY:Normal, GI:Normal, :Normal, MSK:Normal, NEURO:Normal Objective vital signs Vital Sign Date Time Temp Pulse Resp B/P (MAP) Pulse Ox O2 Delivery O2 Flow Rate FiO2 02/07/25 09:00 98.5 74 18 140/59 (86) 100 98.5 02/06/25 19:30 Room Air* 0 21 Total Intake and Output 02/06/25 02/06/25 02/07/25 15:00 23:00 07:00 Intake Total 840 ml 1255 ml 150 ml Output Total 200 ml 800 ml 1090 ml Balance 640 ml 455 ml -940 ml medications Current Medications Medications Dose Ordered Sig/Casey Route Start Time Stop Time Status Last Admin Dose Admin Ceftriaxone Sodium 50 ml @ 100 mls/hr DAILY@09 IV 02/06/25 09:00 02/07/25 08:40 100 MLS/HR Sodium Chloride 1,000 ml @ 100 mls/hr Q10H IV 02/05/25 15:45 02/07/25 06:08 100 MLS/HR Ondansetron HCl 4 mg Q4HP PRN IV 02/05/25 15:45 Enoxaparin Sodium 40 mg DAILY SC 02/06/25 10:00 02/07/25 08:39 40 MG Acetaminophen 650 mg Q6HP PRN PO 02/05/25 15:45 Examination: GENERAL:Normal, HEENT:Normal, NECK:Normal, LUNGS:Normal, CVS:Normal, ABDOMEN:Normal, MSK:Normal, SKIN:Normal, NEURO:Normal, :Normal laboratory and microbiology Laboratory Tests 02/07/25 05:35 Test 02/07/25 05:35 Range/Units Serum Glucose 97 74-106 mg/dL Microbiology Date/Time Source Procedure Growth Status 02/05/25 16:16 Blood Blood Culture - Preliminary NO GROWTH AFTER 24 HOURS OF INCUBATION. Resulted 02/05/25 12:30 Voided Urine Urine Culture - Preliminary Resulted Problem List/Assessment/Plan Problem List/Assessment/Plan #1 syncopy: ? due to low bp #2 h/o cva #3 htn #4 hyperlipidemia #5 depression advance care planning- full code- time spent 19 mins Plan discussed with: Patient Date of Service: Feb 07, 2025 Billing Provider: DAYANNA VÁSQUEZ MD Common Visit Codes: [id number] INP/OBS CARE(HIGH) Secondary Visit Codes: [id number] CARE PLAN 30 MINUTES DAYANNA VÁSQUEZ MD Feb 07, 2025 11:15
[2025-02-07] MEDS: ASPirin 81 mg TAB PO ONE (12:40)
[2025-02-07] MEDS: ATORVASTATIN 20 MG TAB PO SCH (22:10)
[2025-02-08 01:00] VITALS: BP 148/80; PULSE 74; RESP 18; TEMP 98.3; O2SAT 97
[2025-02-08 05:00] VITALS: BP 129/83; PULSE 67; RESP 18; TEMP 97.8; O2SAT 97
[2025-02-08 08:30] VITALS: PULSE 65; O2SAT 100
[2025-02-08 08:49] VITALS: BP 141/79; PULSE 68; RESP 20; TEMP 98.1; O2SAT 98
--- NOTE | 2025-02-08 10:16 | DVHDS2 ---
Discharge Summary Date of Admission Feb 05, 2025 at 15:36 Date of Discharge: Feb 08, 2025 Labs/Diagnostic Data: Laboratory Results Test 02/07/25 05:35 02/06/25 05:51 02/05/25 16:16 02/05/25 15:35 White Blood Count 6.1 10^3/uL (4.4-10.8) Red Blood Count 3.78 10^6/uL (4.5-5.90) Hemoglobin 11.7 g/dL (13.5-17.5) Hematocrit 34.6 % (41.0-53.0) Mean Corpuscular Volume 91.6 fL (80.0-100.0) Mean Corpuscular Hemoglobin 31.1 pg (28.0-32.0) Mean Corpuscular Hemoglobin Concent 33.9 g/dL (32.0-36.0) Red Cell Distribution Width 14.9 % (11.8-14.3) Platelet Count 269 10^3/uL (140-450) Mean Platelet Volume 8.1 fL (6.9-10.8) Neutrophils (%) (Auto) 46.5 % (37.0-80.0) Lymphocytes (%) (Auto) 41.0 % (10.0-50.0) Monocytes (%) (Auto) 9.0 % (0.0-12.0) Eosinophils (%) (Auto) 2.8 % (0.0-7.0) Basophils (%) (Auto) 0.7 % (0.0-2.0) Neutrophils # (Auto) 2.8 10 ^3/uL (1.6-8.6) Lymphocytes # (Auto) 2.5 10 ^3/uL (0.4-5.4) Monocytes # (Auto) 0.5 10 ^3/uL (0-1.3) Eosinophils # (Auto) 0.2 10 ^3/uL (0-0.8) Basophils # (Auto) 0 10 ^3/uL (0-0.2) Nucleated Red Blood Cells 0.1 % Sodium Level 141 mmol/L (136-145) Potassium Level 3.9 mmol/L (3.5-5.1) Chloride Level 110 mmol/L (98-107) Carbon Dioxide Level 22 mmol/L (20-31) Anion Gap 9 (5-15) Blood Urea Nitrogen 11 mg/dL (9-23) Creatinine 0.95 mg/dL (0.700-1.30) Glomerular Filtration Rate Calc 81 mL/min (>90) BUN/Creatinine Ratio 11.6 (10.0-20.0) Serum Glucose 97 mg/dL (74-106) Calcium Level 9.7 mg/dL (8.7-10.4) Total Bilirubin 0.5 mg/dL (0.2-1.0) Aspartate Amino Transferase (AST) 27 U/L (13-40) Alanine Aminotransferase (ALT) 25 U/L (7-40) Alkaline Phosphatase 117 U/L (46-116) Total Protein 7.0 g/dL (5.7-8.2) Albumin 4.1 g/dL (3.2-4.8) Lactic Acid Level 1.7 mmol/L (0.4-2.0) Troponin I High Sensitivity 8 ng/L (</=54) Test 02/05/25 12:56 02/05/25 12:52 02/05/25 12:30 POC Glucose 104 mg/dl (70-106) Hemoglobin A1c 5.6 % A1C (<5.7) Magnesium Level 2.4 mg/dL (1.6-2.6) Creatine Kinase 80 U/L (46-171) B-Type Natriuretic Peptide 3.14 pg/mL (0-100) Triglycerides Level 104 mg/dL (< 150) Cholesterol Level 191 mg/dL (< 200) LDL Cholesterol 114 mg/dL (< 100) HDL Cholesterol 59 mg/dL (40-59) Thyroid Stimulating Hormone (TSH) 8.44 uIU/mL (0.55-4.78) Urine Color Yellow (Yellow) Urine Clarity Clear (Clear) Urine pH 5.5 (5.0-9.0) Urine Specific [place] 1.026 (1.001-1.035) Urine Protein Trace (Negative) Urine Ketones Negative (Negative) Urine Blood Negative /uL (Negative) Urine Nitrite Negative (Negative) Urine Bilirubin Negative (Negative) Urine Urobilinogen Normal mg/dL (Negative) Urine Leukocyte Esterase Negative /uL (Negative) Urine RBC None seen /hpf (0 - 3) Urine Microscopic WBC 1 /HPF (0-3) Urine Squamous Epithelial Cells Few /hpf (<5) Urine Bacteria None seen /hpf (None Seen) Urine Hyaline Casts Mod /lpf (0 - 2) Urine Mucus Few (None Seen) Urine Glucose Normal mg/dL (Normal) Urine Opiates Screen Neg (NEGATIVE) Urine Fentanyl Screen Neg (NEGATIVE) Urine Barbiturates Screen Neg (NEGATIVE) Urine Phencyclidine Screen Neg (NEGATIVE) Urine Amphetamines Screen Neg (NEGATIVE) Urine Benzodiazepines Screen Neg (NEGATIVE) Urine Cocaine Screen Neg (NEGATIVE) Urine Cannabinoids Screen Neg (NEGATIVE) Other Laboratory Tests 02/07/25 05:35 Brief Hx & Hospital Course: see dictated note Condition at Discharge: Fair Final Diagnosis/Problems List syncopy Discharge Disposition: Home Discharge Instruct/Medications Diet: Cardiac 2g Na,low cholest Activity: No Restrictions, As Tolerated Follow [facility]Ref[facility]: [facility] Medications: resume home meds except reduce ibersartan dose in half [facility] Discharge Statement: "Patient was advised to return to the ER or call 911 if any headaches, dizziness, shortness of breath, chest pain, abdominal pain, bleeding, fevers, or worsening of medical condition. Patient was counseled about treatment plan, medications, possible side effects, patientverbalized understanding. All questions were answered to the best of my ability. This discharge took greater then 30 minutes in planning, reviewing documentation, counseling the patient, and discussing with other team members." ASSESSMENT ASSESSMENT Assessment syncopy Date of Service: Feb 08, 2025 Billing Provider: DAYANNA VÁSQUEZ MD Common Visit Codes: [id number] DISCH DAY >30min DAYANNA VÁSQUEZ MD Feb 08, 2025 10:16
--- NOTE | 2025-02-08 10:52 | DVHDS ---
DATE OF DISCHARGE: 02/08/2025 HISTORY OF PRESENT ILLNESS: The patient is an 79-year-old gentleman who came in with history of syncope and has history of CVA, hypertension, hyperlipidemia. HOSPITAL COURSE: The patient had a CT head that showed old left-sided infarcts. The patient had blood and urine cultures that were negative. TSH was 8.4. The patient had low blood pressure when he came to the Emergency Room. He has been afebrile at this time. The patient had an echocardiogram done that showed ejection fraction of 65%. He will now be discharged home. I discussed with his , Janett, and told her to monitor his blood pressure at home and to reduce by half. I have also talked about repeating his TSH for possible hypothyroidism. [facility]. FINAL DIAGNOSES: Therefore, * Syncope, questionably due to hypotension, questionable autonomic failure. * History of cerebrovascular accident. * Hypertension. * Hyperlipidemia. * Depression. * Questionable hypothyroidism. Time spent in discharge planning and review of plan with the patient and family and nursing was 38 minutes. MD LANCE Lowe/PRABHU/ERNESTO TID: [id number] RECEIPT: [id number]
[2025-02-08 12:46] VITALS: BP 126/75; PULSE 67; RESP 20; TEMP 97.8; O2SAT 98
[2025-02-08] MEDS: ASPirin 81 mg TAB PO SCH (13:09)
== END 2025-02-08 13:40 | disposition home or self-care (01) | DRG 74 ==
LOC: ER 12:33 → OVERFLOW 15:36 → TELE-CENTR 18:25
PROVIDERS: ADMIT Internal Medicine; ATTEND Internal Medicine
DX: G90.89 Other disorders of autonomic nervous system (principal); E87.20 Acidosis, unspecified; I95.9 Hypotension, unspecified; I10 Essential (primary) hypertension; E78.5 Hyperlipidemia, unspecified; E07.9 Disorder of thyroid, unspecified; F32.A Depression, unspecified; E03.9 Hypothyroidism, unspecified; Z86.73 Personal history of transient ischemic attack (TIA), and cerebral infarction without residual deficits
CPT/HCPCS: 36415; 70450; 71045; 80048; 80053; 80061; 80307; 81001; 82306; 82550; 82962; 83036; 83605; 83735; 83880; 84425; 84443; 84484; 85025; 87040; 87086; 93005; 93306; 96365; 97110; 97116; 97163; G0378

== ENCOUNTER 2025-10-01 10:46 | Inpatient (IN) | payer OTHER, MEDICARE ==
[~2025-10-01] VITALS: Ht 175.3 cm; Wt 79.9 kg
--- NOTE | 2025-10-01 13:22 | DVH ---
EXAM: CT HEAD WITHOUT CONTRAST INDICATION: SYNCOPE TECHNIQUE: CT images of the head were obtained without administration of IV contrast. CT scans at this facility use dose modulation, iterative reconstruction, and/or weight based dosing when appropriate to reduce radiation dose to as low as reasonably achievable. COMPARISON: CT HEAD WITHOUT CONTRAST on DOS: 02/05/25 FINDINGS: PARENCHYMA: No acute hemorrhage. There is no mass effect, midline shift, or herniation. Large area presumed prior infarcts of the left occipital lobe and left superior frontal gyrus. Severe scattered hypoattenuation along the periventricular, centrum semiovale, and deep white matter tracts, which are n onspecific however statistically most likely represent chronic microvascular ischemic change. Prior infarct of the left posterior superior cerebellar hemisphere. VENTRICLES: No hydrocephalus. EXTRA-AXIAL SPACES: No extra-axial fluid collections. OTHER: The bony structures are intact. Visualized portions of the paranasal sinuses and mastoid air cells are clear. IMPRESSION: 1. No CT evidence of an acute intracranial abnormality. 2. Sequelae of prior infarcts of the left occipital lobe, left superior frontal gyrus, and left posterior superior cerebellar hemisphere. 3. Severe chronic microvascular ischemic change.
--- NOTE | 2025-10-01 13:28 | DVH ---
CLINICAL INFORMATION: Syncope. TECHNIQUE: Single AP portable chest radiograph was obtained. COMPARISON: XY CHEST XRAY 1 VIEW on DOS: 02/05/25, XY CHEST PORTABLE on DOS: 07/16/24, XY CHEST PORTABLE on DOS: 07/13/24 FINDINGS: Lungs: Mild atelectasis in the lung bases. No focal consolidation. No pneumothorax or pleural effusion. Cardiac: Heart size is within normal limits. Pulmonary vasculature: Unremarkable. Mediastinum/vikas: Unremarkable. Bones: No acute osseous abnormality identified. Other: No other significant findings. IMPRESSION: No evidence of acute disease in the chest.
[2025-10-01 14:07] LABS: Hematocrit 41.3 % (41.0-53.0); Hemoglobin 13.8 g/dL (13.5-17.5); Mean Corpuscular Hemoglobin 31.3 pg (28.0-32.0); Mean Corpuscular Volume 93.7 fL (80.0-100.0); Nucleated Red Blood Cells % 0.1 %
[2025-10-01 14:12] LABS: Potassium 4.5 mmol/L (3.5-5.1); Sodium 140 mmol/L (136-145)
[2025-10-01 14:13] LABS: Anion Gap 11 (5-15); Calcium 9.1 mg/dL (8.7-10.4); Carbon Dioxide 21 mmol/L (20-31)
[2025-10-01 14:18] LABS: BUN/Creatinine Ratio 12.5 (10.0-20.0); Blood Urea Nitrogen 12 mg/dL (9-23)
[2025-10-01 14:28] LABS: Chloride 108 mmol/L (98-107); Glucose 127 mg/dL (74-106)
--- NOTE | 2025-10-01 14:42 | ED.PDOC ---
History of Present Illness HPI Comments 79-year-old male is brought in by ambulance from prior residence for chief complaint of syncope. Significant history for CVA, HLD, HTN, and previous syncopes. Per EMS report, patient has reports of had a syncope episode, while using the toilet, earlier, this morning. He was noted to has been diaphoretic on scene, with no reported signs of injuries. At time of assessment, patient has not recollection of the events other than use in the bathroom before passing out. No reported recent ailments, injuries, or additional pertinent history, aside from previous syncope episodes. He denies any pain, shortness a breath, dizziness, lightheadedness, or further acute symptoms. Chief Complaint: Syncope Time Seen by MD: 12:20 Primary Care Provider: UNKNOWN NAME Reviewed Notes: Nurses Notes, Probate Clerk Notes, Medications, Allergies Allergies: Coded Allergies: NO KNOWN ALLERGIES (Unverified , 05/25/19) Home Meds Reported Medications Latanoprost (LATANOPROST) 0.005 % Mirian, 1 DROP EACHEYE 07/17/24 Ergocalciferol (Ergocalciferol) 8,000 Unit/Ml Mathieu, 1250 UNIT PO QWEEKLY, MATHIEU 07/11/24 Atorvastatin Calcium (ATORVASTATIN CALCIUM) 40 Mg Tab, 1 TAB PO DAILY, #30 TAB 5 Refills 07/11/24 Escitalopram Oxalate (ESCITALOPRAM OXALATE) 20 Mg Tab, 50 MG PO, TAB 07/11/24 Irbesartan (IRBESARTAN) 300 Mg Tab, 150 MG PO DAILY, TAB 07/11/24 Aspirin (Aspir-Low) 81 Mg Tab, 81 MG PO DAILY for 30 Days, MG 07/11/24 Information Source: Patient, Emergency Med Personnel Mode of Arrival: EMS Severity: Moderate Timing: Hours Duration: Minutes Prehospital treatment: 12 Lead EKG, Accucheck, Data Migration Consultant Past Medical History PAST MEDICAL HISTORY: CVA, Depression, High Lipids, HTN Past Medical History (Other): Syncope, questionably due to hypotension, , questionable autonomic failure Questionable hypothyroidism Surgical History: Denies all surgeries Family History Family History: Reviewed,noncontributory to illness Social History Smoker: Cigarettes Alcohol: Occasionally Drugs: Cocaine Lives In: Home All Other Systems: Reviewed and Negative (Comprehensive review of systems are negative unless otherwise stated in HPI) Physical Exam General Appearance: No Apparent Distress, Normal HEENT: Normal ENT Inspection, Pharynx Normal, TMs Normal Neck: Full Range of Motion, Non-Tender, Normal, Normal Inspection Respiratory: Chest Non-Tender, Lungs Clear, No Accessory Muscle Use, No Respiratory Distress, Normal Breath Sounds Cardiovascular: No Edema, No JVD, No Murmur, No Gallop, Normal Peripheral Pulses, Regular Rate/Rhythm Breast Exam: Deferred Gastrointestinal: No Organomegaly, Non Tender, No Pulsatile Mass, Normal Bowel Sounds, Soft Genitalia: Deferred Pelvic: Deferred Rectal: Deferred Extremities: No calf tenderness, Normal capillary refill, Normal inspection, Normal range of motion, Non-tender, No pedal edema Musculoskeletal : Apperance: Normal Neurologic: Alert, animal therapist II-XII nml as Tested, No Motor Deficits, Normal Affect, Normal Mood, No Sensory Deficits Cerebellar Function: Normal Reflexes: Normal Skin: Dry, Normal Color, Warm Lymphatic: No Adenopathy Was a procedure done? Was a procedure done?: No Differential Dx Considerations may include: Syncope - unknown etiology, hypotension, dehydration, electrolyte imbalance, CVA versus TIA, intracranial hemorrhaging, among others X-Ray, Labs, Meds, VS Vital Signs Date Time Temp Pulse Resp B/P (MAP) Pulse Ox O2 Delivery O2 Flow Rate FiO2 10/01/25 11: 99.7 98 18 123/74 96 99.7 Lab Test 10/01/25 15:02 10/01/25 13:56 Range/Units Troponin I High Sensitivity Pending 5 </=54 ng/L White Blood Count 6.5 4.4-10.8 10^3/uL Red Blood Count 4.41 L 4.5-5.90 10^6/uL Hemoglobin 13.8 13.5-17.5 g/dL Hematocrit 41.3 41.0-53.0 % Mean Corpuscular Volume 93.7 80.0-100.0 fL Mean Corpuscular Hemoglobin 31.3 28.0-32.0 pg Mean Corpuscular Hemoglobin Concent 33.4 32.0-36.0 g/dL Red Cell Distribution Width 15.3 H 11.8-14.3 % Platelet Count 260 140-450 10^3/uL Mean Platelet Volume 8.1 6.9-10.8 fL Neutrophils (%) (Auto) 69.5 37.0-80.0 % Lymphocytes (%) (Auto) 16.7 10.0-50.0 % Monocytes (%) (Auto) 13.4 H 0.0-12.0 % Eosinophils (%) (Auto) 0.0 0.0-7.0 % Basophils (%) (Auto) 0.4 0.0-2.0 % Neutrophils # (Auto) 4.5 1.6-8.6 10 ^3/uL Lymphocytes # (Auto) 1.1 0.4-5.4 10 ^3/uL Monocytes # (Auto) 0.9 0-1.3 10 ^3/uL Eosinophils # (Auto) 0 0-0.8 10 ^3/uL Basophils # (Auto) 0 0-0.2 10 ^3/uL Nucleated Red Blood Cells 0.1 % Sodium Level 140 136-145 mmol/L Potassium Level 4.5 3.5-5.1 mmol/L Chloride Level 108 H 98-107 mmol/L Carbon Dioxide Level 21 20-31 mmol/L Anion Gap 11 5-15 Blood Urea Nitrogen 12 9-23 mg/dL Creatinine 0.96 0.700-1.30 mg/dL Glomerular Filtration Rate Calc 80 >90 mL/min BUN/Creatinine Ratio 12.5 10.0-20.0 Serum Glucose 127 H 74-106 mg/dL Calcium Level 9.1 8.7-10.4 mg/dL B-Type Natriuretic Peptide 8.85 0-100 pg/mL [place] [address] Ph: [phone] DIAGNOSTIC IMAGING Diagnostic Imaging Report : [id number] Signed PATIENT: LESTER TAYLOR ACCT: [id number] UNIT: [id number] : 1945 LOC: ER ROOM / BED: / AGE / SEX: 79 / M ADM STATUS: REG ER SERVICE 1223 ORDERING PHYSICIAN: PRINCE HORNE MD PROCEDURE(s): HWOCT - HEAD WITHOUT CONTRAST REASON: SYNCOPE ORDER NUMBER(s): [id number], ACCESSION NUMBER(s): [id number] EXAM: CT HEAD WITHOUT CONTRAST INDICATION: SYNCOPE TECHNIQUE: CT images of the head were obtained without administration of IV contrast. CT scans at this facility use dose modulation, iterative reconstruction, and/or weight based dosing when appropriate to reduce radiation dose to as low as reasonably achievable. COMPARISON: CT HEAD WITHOUT CONTRAST on DOS: 02/05/25 FINDINGS: PARENCHYMA: No acute hemorrhage. There is no mass effect, midline shift, or herniation. Large area presumed prior infarcts of the left occipital lobe and left superior frontal gyrus. Severe scattered hypoattenuation along the periv entricular, centrum semiovale, and deep white matter tracts, which are nonspecific however statistically most likely represent chronic microvascular ischemic change. Prior infarct of the left posterior superior cerebellar hemisphere. VENTRICLES: No hydrocephalus. EXTRA-AXIAL SPACES: No extra-axial fluid collections. OTHER: The bony structures are intact. Visualized portions of the paranasal sinuses and mastoid air cells are clear. IMPRESSION: 1. No CT evidence of an acute intracranial abnormality. 2. Sequelae of prior infarcts of the left occipital lobe, left superior frontal gyrus, and left posterior superior cerebellar hemisphere. 3. Severe chronic microvascular ischemic change. ATED BY: ALEX VELIZ MD DICTATED DATE/TIME: 10/01/25 1319 SIGNED BY: ALEX VELIZ MD SIGNED DATE/TIME: 10/01/25 131 CC: [place] [address] Ph: [phone] DIAGNOSTIC IMAGING Diagnostic Imaging Report : [id number] Signed PATIENT: LESTER TAYLOR ACCT: [id number] UNIT: [id number] : 1945 LOC: ER ROOM / BED: / AGE / SEX: 79 / M ADM STATUS: REG ER SERVICE 1223 ORDERING PHYSICIAN: PRINCE HORNE MD PROCEDURE(s): CXRP - CHEST PORTABLE REASON: SYNCOPE ORDER NUMBER(s): [id number], ACCESSION NUMBER(s): [id number] CLINICAL INFORMATION: Syncope. TECHNIQUE: Single AP portable chest radiograph was obtained. COMPARISON: XY CHEST XRAY 1 VIEW on DOS: 02/05/25, XY CHEST PORTABLE on DOS: 07/16/24, XY CHEST PORTABLE on DOS: 07/13/24 FINDINGS: Lungs: Mild atelectasis in the lung bases. No focal consolidation. No pneumothorax or pleural effusion. Cardiac: Heart size is within normal limits. Pulmonary vasculature: Unremarkable. Mediastinum/vikas: Unremarkable. Bones: No acute osseous abnormality identified. Other: No other significant findings. IMPRESSION: No evidence of acute disease in the chest. ATED BY: GALLO ESTRADA DO DICTATED DATE/TIME: 10/01/256 SIGNED BY: GALLO ESTRADA DO SIGNED DATE/TIME: 10/01/251325 CC: Time of 1ST Reevaluation: 12:50 Reevaluation 1ST: Unchanged Patient Education/Counseling: Diagnosis, Treatment Family Education/Counseling: No Family Present Additional Information Additional historians: EMS personnel Previous medical visits reviewed: February 05, 2025 encounter for syncope Additional imaging reviewed: head CT without contrast, chest x-ray Labs ordered: EKG, troponin, head CT without contrast, chest x-ray, CBC, BMP, BNP SEPSIS Sepsis Screen Date sepsis recognized/suspect: Oct 01, 2025 Time Sepsis recognized/suspect: 1050 Recent Procedure: No On Antibiotic Therapy: No Respiratory Rate >20: No Heart Rate >90: No Temp<36 C (96.8 F) or >38.3 C: No SBP <90 or MAP <65 mmHG: No New Acute Mental Status Change: No Is the patient on CPAP, BIPAP,: No Physician Orders Urinalysis (10/01/25 12:23) Chest Portable (10/01/25 12:23) Head Without Contrast (10/01/25 12:23) Electrocardigram (10/01/25 12:23) Troponin-I Hs (10/01/25 13:23) Troponin-I Hs (10/01/25 15:23) Electrocardigram (10/01/25 13:23) Electrocardigram (10/01/25 15:23) Vital Signs Date Time Temp Pulse Resp B/P (MAP) Pulse Ox O2 Delivery O2 Flow Rate FiO2 10/01/25 11: 99.7 98 18 123/74 96 99.7 Laboratory Tests Test 10/01/25 13:56 White Blood Count 6.5 10^3/uL (4.4-10.8) Departure 1 Departure Time of Disposition: 15:36 (Patient presented with syncope today and should be admitted. Data: 1. I ordered and reviewed the result of at least 3 labs including a CBC, BMP, and troponin. 2. I independently interpreted the following tests: EKG which shows a sinus arrhythmia and a chest x-ray which shows [address] head which shows benign brain.Risk:This patient has a high risk of morbidity due to further diagnostic testing or treatment and may suffer from an acute cardiac, neurologic, or infectious disorder. Rationale: Patient should be admitted to the hospital for further management.) Impression: Primary Impression: Syncope and collapse Additional Impression: Generalized weakness Disposition: ADMITTED INPATIENT Admit to: Tele Condition: Guarded Critical Care Note Critical Care Time?: Yes Critical care comment: Syncope Authorized and Performed by: Prince Horne MD Total critical care time: Approximately 38 minutes Due to a high probability of clinically significant, life threatening deterioration, the patient required my highest level of preparedness to intervene emergently and I personally spent this critical care time directly and personally managing the patient. This critical care time included obtaining a history; examining the patient; pulse oximetry; ordering and review of studies; arranging urgent treatment with development of a management plan; evaluation of patient's response to treatment; frequent reassessment; and, discussions with other providers. This critical care time was performed to assess and manage the high probability of imminent, life-threatening deterioration that could result in multi-organ failure. It was exclusive of separately billable procedures and treating other patients and teaching time. Please see my other sections and the rest of the note for further information on patient assessment and treatment. Stability Stability form required: No Heart Score Heart Score: Heart Score Response (Comments) Value History N/A 0 EKG N/A 0 Age N/A 0 Risk Factors N/A 0 Troponin N/A 0 Total 0 I personally scribed for PRINCE HORNE MD ([email or web address]) on 10/01/25 at 14:42. Electronically submitted by Paul Cruz ([email or web address]). I personally scribed for PRINCE HORNE MD ([email or web address]) on 10/01/25 at 14:46. Electronically submitted by Paul Cruz [email or web address]). PRINCE HORNE MD Oct 01, 2025 14:42
[2025-10-01] MEDS ORDERED: HYDROcodone-ACET 5/325MG TAB PO PRN (21:30)
[2025-10-01] MEDS ORDERED: MORPHINE SULFATE INJ 2 MG/ml SYRG IV PRN (21:30)
[2025-10-01] MEDS ORDERED: ACETAMINOPHEN 325 MG TAB PO PRN (21:30)
[2025-10-01] MEDS ORDERED: ONDANSETRON HCL 4 MG/2 ML VIAL IV PRN (21:30)
[2025-10-01] MEDS ORDERED: NITROGLYCERIN 0.4 MG SL TAB SL PRN (21:30)
[2025-10-01] MEDS ORDERED: DOCUSATE SOD 100 MG CAP PO PRN (21:30)
--- NOTE | 2025-10-01 21:31 | DVHHP2 ---
History of Present Illness Reason for Visit: Syncope and collapse History of Present Illness The patient is a 79-year-old male with past medical history of depression, hyperlipidemia, CVA, and hypertension who presented to [facility] ED for evaluation of syncopal episode. Patient reports that he passed out while u sing the toilet earlier this morning, associated with diaphoresis, generalized weakness, but unable to recall event other than using the bathroom before passing out. Patient was seen and evaluated in the ED, laboratory data shows WBC 6.5, platelets 260, sodium 140, potassium 4.5, BUN 12, creatinine 0.96, GFR 80, glucose 127, calcium 9.1, troponin 5, BNP 8.85, blood pressure 154/84, heart rate 72, temperature 99.4 F, O2 saturation 99% on room air. Head CT showed no evidence of acute intracranial abnormality. Please see medication orders section in the computer. On my assessment, patient denies chest pain, no headache, head trauma, dizziness, lightheadedness, loss of consciousness, shortness of breaths, no abdominal pain, diarrhea, nausea, vomiting, fever, no chills. Patient was admitted for further evaluation and medical management. Past Medical History CVA, Depression, High Lipids, HTN Past Surgical History Denies all surgeries Family History Reviewed, noncontributory to the management of this case. Past Social History The patient lives at home, smokes cigarettes, drinks alcohol occasionally, uses cocaine. Review of Systems Constitutional: Yes: Weakness; No: Fever, Chills, Sweats, Malaise, Other Eyes: No: Pain, Vision change, Conjunctivae inflammation, Eyelid inflammation, Other, Redness ENT: No: Ear pain, Ear discharge, Nose pain, Nose discharge, Nose congestion, Mouth pain, Mouth swelling, Throat pain, Throat swelling, Other Respiratory: No: Cough, Dry, Shortness of breath, SOB with excertion, Wheezing, Hemoptysis, Pleuritic Pain, Sputum, Wheezing, Other Cardiovascular: Other (Syncope); No: Chest Pain, Palpitations, Orthopnea, Paroxysmal Noc. Dyspnea, Edema, Lt Headedness Gastrointestinal: No: Nausea, Vomiting, Abdominal Pain, Diarrhea, Constipation, Melena, Hematochezia, Other Genitourinary: No Dysuria, No Frequency, No Incontinence, No Hematuria, No Retention, No Other Musculoskeletal: No: other, neck pain, shoulder pain, arm pain, back pain, hand pain, leg pain, foot pain Skin: No: Rash, Lesions, Jaundice, Bruising, Other Neurological: No: Weakness, Numbness, Incoordination, Change in speech, Confusion, Seizures, Other Allergies: Coded Allergies: NO KNOWN ALLERGIES (Unverified , 05/25/19) Exam Vital Signs Vital Signs Date Time Temp Pulse Resp B/P (MAP) Pulse Ox O2 Delivery O2 Flow Rate FiO2 10/01/25 20:16 99.4 72 20 154/84 (107) 100 99.4 10/01/25 20:16 Room Air General Appearance: Alert, Oriented X3, Cooperative, No acute distress HEENT: Atraumatic, PERRLA, EOMI, Mucous membr. moist/pink Respiratory: Normal air movement Cardiovascular: Regular rate, Normal S1, Normal S2, No murmurs Abdominal: Normal bowel sounds, Soft, No tenderness, No hepatospenomegaly, No masses Extremities: No clubbing, No cyanosis, No edema, Normal pulses, No tenderness/swelling Skin: No rashes, No significant lesion Neuro: Normal speech, Normal tone, Sensation intact, Cranial nerves 3-12 NL, Reflexes 2+, Other (Generalized weakness) Psych/Mental Status: Mental status NL, Mood NL Labs/Xrays Labs Test 10/01/25 17:00 10/01/25 13:56 Range/Units Troponin I High Sensitivity 5 </=54 ng/L White Blood Count 6.5 4.4-10.8 10^3/uL Red Blood Count 4.41 L 4.5-5.90 10^6/uL Hemoglobin 13.8 13.5-17.5 g/dL Hematocrit 41.3 41.0-53.0 % Mean Corpuscular Volume 93.7 80.0-100.0 fL Mean Corpuscular Hemoglobin 31.3 28.0-32.0 pg Mean Corpuscular Hemoglobin Concent 33.4 32.0-36.0 g/dL Red Cell Distribution Width 15.3 H 11.8-14.3 % Platelet Count 260 140-450 10^3/uL Mean Platelet Volume 8.1 6.9-10.8 fL Neutrophils (%) (Auto) 69.5 37.0-80.0 % Lymphocytes (%) (Auto) 16.7 10.0-50.0 % Monocytes (%) (Auto) 13.4 H 0.0-12.0 % Eosinophils (%) (Auto) 0.0 0.0-7.0 % Basophils (%) (Auto) 0.4 0.0-2.0 % Neutrophils # (Auto) 4.5 1.6-8.6 10 ^3/uL Lymphocytes # (Auto) 1.1 0.4-5.4 10 ^3/uL Monocytes # (Auto) 0.9 0-1.3 10 ^3/uL Eosinophils # (Auto) 0 0-0.8 10 ^3/uL Basophils # (Auto) 0 0-0.2 10 ^3/uL Nucleated Red Blood Cells 0.1 % Sodium Level 140 136-145 mmol/L Potassium Level 4.5 3.5-5.1 mmol/L Chloride Level 108 H 98-107 mmol/L Carbon Dioxide Level 21 20-31 mmol/L Anion Gap 11 5-15 Blood Urea Nitrogen 12 9-23 mg/dL Creatinine 0.96 0.700-1.30 mg/dL Glomerular Filtration Rate Calc 80 >90 mL/min BUN/Creatinine Ratio 12.5 10.0-20.0 Serum Glucose 127 H 74-106 mg/dL Calcium Level 9.1 8.7-10.4 mg/dL B-Type Natriuretic Peptide 8.85 0-100 pg/mL PATIENT: LESTER TAYLOR ACCT: [id number] UNIT: [id number] : 1945 LOC: ER ROOM / BED: / AGE / SEX: 79 / M ADM STATUS: REG ER SERVICE 1223 ORDERING PHYSICIAN: PRINCE HORNE MD PROCEDURE(s): HWOCT - HEAD WITHOUT CONTRAST REASON: SYNCOPE ORDER NUMBER(s): [id number], ACCESSION NUMBER(s): [id number] EXAM: CT HEAD WITHOUT CONTRAST INDICATION: SYNCOPE TECHNIQUE: CT images of the head were obtained without administration of IV contrast. CT scans at this facility use dose modulation, iterative reconstruc tion, and/or weight based dosing when appropriate to reduce radiation dose to as low as reasonably achievable. COMPARISON: CT HEAD WITHOUT CONTRAST on DOS: 02/05/25 FINDINGS: PARENCHYMA: No acute hemorrhage. There is no mass effect, midline shift, or reynold iation. Large area presumed prior infarcts of the left occipital lobe and left superior frontal gyrus. Severe scattered hypoattenuation along the periventricular, centrum semiovale, and deep white matter tracts, which are nonspecific however statistically most likely represent chronic microvascular ischemic change. Prior infarct of the left posterior superior cerebellar hemisphere. VENTRICLES: No hydrocephalus. EXTRA-AXIAL SPACES: No extra-axial fluid collections. OTHER: The bony structures are intact. Visualized portions of the paranasal sinuses and mastoid air cells are clear. IMPRESSION: 1. No CT evidence of an acute intracranial abnormality. 2. Sequelae of prior infarcts of the left occipital lobe, left superior frontal gyrus, and left posterior superior cerebellar hemisphere. 3. Severe chronic microvascular ischemic change. ORDERING PHYSICIAN: PRINCE HORNE MD PROCEDURE(s): CXRP - CHEST PORTABLE REASON: SYNCOPE ORDER NUMBER(s): [id number], ACCESSION NUMBER(s): [id number] CLINICAL INFORMATION: Syncope. TECHNIQUE: Single AP portable chest radiograph was obtained. COMPARISON: XY CHEST XRAY 1 VIEW on DOS: 02/05/25, XY CHEST PORTABLE on DOS: 07/16/24, XY CHEST PORTABLE on DOS: 07/13/24 FINDINGS: Lungs: Mild atelectasis in the lung bases. No focal consolidation. No pneumothorax or pleural effusion. Cardiac: Heart size is within normal limits. Pulmonary vasculature: Unremarkable. Mediastinum/vikas: Unremarkable. Bones: No acute osseous abnormality identified. Other: No other significant findings. IMPRESSION: No evidence of acute disease in the chest. SEPSIS Sepsis Screen Date sepsis recognized/suspect: Oct 01, 2025 Time Sepsis recognized/suspect: 2017 Recent Procedure: No On Antibiotic Therapy: No Respiratory Rate >20: No Heart Rate >90: No Temp<36 C (96.8 F) or >38.3 C: No SBP <90 or MAP <65 mmHG: No New Acute Mental Status Change: No Is the patient on CPAP, BIPAP,: No Vital Signs Date Time Temp Pulse Resp B/P (MAP) Pulse Ox O2 Delivery O2 Flow Rate FiO2 10/01/25 20:16 99.4 72 20 154/84 (107) 100 99.4 10/01/25 20:16 72 20 100 Room Air 10/01/25 15:04 73 Laboratory Tests Test 10/01/25 13:56 White Blood Count 6.5 10^3/uL (4.4-10.8) Assessment/Plan Assessment/Plan Syncope and collapse Generalized weakness Plan 1. Admit to telemetry unit 2. Breathing treatment 3. Pain control management 4. Management of fluids and electrolytes 5. Consultation for Cardiology/hospitalist 6. Diagnostic tests head CT 7. DVT prophylaxis-on SCDs 8. Repeat labs CBC, CMP in a.m. 9. Continue with current medical management 10. Treatment plan discussed with patient and RN. Patient verbalized understanding. Plan discussed with: Patient, Other (RN) Problem List: (1) Syncope and collapse (2) Generalized weakness Date of Service: Oct 02, 2025 Billing Provider: DANET CURRY DNP Common Visit Codes: [id number] INP/OBS CARE (HIGH) DANTE CURYR DNP Oct 01, 2025 21:30
[2025-10-01] MEDS: SODIUM CHLOR 0.9% PF (SALINE LOCK) 10ML VIAL/SYR IV SCH (22:20)
[2025-10-01] MEDS: ATORVASTATIN 20 MG TAB PO SCH (22:39)
[2025-10-02] VITALS (9 sets, daily range): BP systolic 99–132; BP diastolic 60–79; PULSE 62–71; RESP 16–20; TEMP 97.6–98.2; O2SAT 94–99
[2025-10-02 03:03] LABS: Hematocrit 37.4 % (41.0-53.0); Hemoglobin 12.7 g/dL (13.5-17.5); Mean Corpuscular Hemoglobin 31.2 pg (28.0-32.0); Mean Corpuscular Volume 91.4 fL (80.0-100.0); Nucleated Red Blood Cells % 0.1 %
[2025-10-02 03:17] LABS: Alanine Aminotransferase 32 U/L (7-40); Albumin 4.0 g/dL (3.2-4.8); Anion Gap 11 (5-15); BUN/Creatinine Ratio 13.6 (10.0-20.0); Blood Urea Nitrogen 12 mg/dL (9-23); Calcium 9.1 mg/dL (8.7-10.4); Carbon Dioxide 23 mmol/L (20-31); Chloride 107 mmol/L (98-107); Glucose 98 mg/dL (74-106); Potassium 3.9 mmol/L (3.5-5.1); Sodium 141 mmol/L (136-145); Total Protein 6.9 g/dL (5.7-8.2)
[2025-10-02 03:19] LABS: Bilirubin, Total 0.4 mg/dL (0.2-1.0)
[2025-10-02 03:22] LABS: Alkaline Phosphatase 121 U/L (46-116)
[2025-10-02 05:47] LABS: Urine Protein, UAD 1+ (Negative)
--- NOTE | 2025-10-02 06:35 | ECG ---
[facility] Test Date: 2025-10-01 Test Time: 15:04:37 Pat Name: LESTER TAYLOR Department: [facility] ED Patient ID: [id number] Room: 0276T A Gender: M [employer]: ld : 1945 Requested By: PRINCE HORNE Order Number: [id number] Reading MD: Obinna Barry Measurements Intervals [place] Rate: 73 P: 49 RI: 171 QRS: 51 QRSD: 85 T: 57 QT: 394 QTc: 435 Interpretive Statements Sinus rhythm Probable left atrial enlargement Low voltage, precordial leads Electronically Signed On 10-03-2025 10:58:22 PST by Obinna Barry Please click the below link to view image of tracing.
[2025-10-02] MEDS: CITALOPRAM HYDROBR 20 MG TAB PO SCH (09:04)
--- NOTE | 2025-10-02 13:10 | DVHPN2 ---
Reviewed: Care Plan, H&P, Labs, Medications, Previous Orders, Radiology Changes from previous H/P or p: No Changes Eyes: No Pain, No Vision change, No Conjunctivae inflammation, No Eyelid inflammation, No Other, No Redness ENT: No Ear pain, No Ear discharge, No Nose pain, No Nose discharge, No Nose congestion, No Mouth pain, No Mouth swelling, No Throat pain, No Throat swelling, No Other Cardiovascular: No Chest Pain, No Palpitations, No Orthopnea, No Paroxysmal Noc. Dyspnea, No Edema, No Lt Headedness; Other (Syncope) Respiratory: No Cough, No Dry, No Shortness of breath, No SOB with excertion, No Wheezing, No Hemoptysis, No Pleuritic Pain, No Sputum, No Other Gastrointestinal: No Nausea, No Vomiting, No Abdominal Pain, No Diarrhea, No Constipation, No Melena, No Hematochezia, No Other Genitourinary: No Dysuria, No Frequency, No Incontinence, No Hematuria, No Retention, No Other Musculoskeletal: No other, No neck pain, No shoulder pain, No arm pain, No back pain, No hand pain, No leg pain, No foot pain Skin: No Rash, No Lesions, No Jaundice, No Bruising, No Other Objective Vitals Vital Signs Date Time Temp Pulse Resp B/P (MAP) Pulse Ox O2 Delivery O2 Flow Rate FiO2 10/02/25 09:00 97.6 62 17 130/71 (90) 99 97.6 10/02/25 04:26 Room Air* 0 21 Medications Current Medications Medications Dose Ordered Sig/Casey Route Start Time Stop Time Status Last Admin Dose Admin Aspirin 81 mg DAILY PO 10/02/25 10:00 10/02/25 09:04 81 MG Atorvastatin Calcium 40 mg HS PO 10/01/25 22:00 10/01/25 22:39 40 MG Citalopram Hydrobromide 40 mg DAILY PO 10/02/25 10:00 10/02/25 09:04 40 MG Sodium Chloride 10 ml Q8HR IV 10/01/25 22:00 10/02/25 05:41 10 ML Acetaminophen/ Hydrocodone Bitart 1 tab Q4HP PRN PO 10/01/25 21:30 Ondansetron HCl 4 mg Q4HP PRN IV 10/01/25 21:30 Docusate Sodium 100 mg BIDPRN PRN PO 10/01/25 21:30 Acetaminophen 650 mg Q6HP PRN PO 10/01/25 21:30 Nitroglycerin 0.4 mg Q5MINP PRN SL 10/01/25 21:30 Morphine Sulfate 2 mg Q30M PRN IV 10/01/25 21:30 Clonidine HCl 0.1 mg Q4HP PRN PO 10/02/25 08:00 Ceftriaxone Sodium 50 ml @ 100 mls/hr DAILY@09 IV 10/03/25 09:00 UNV Laboratory Results Laboratory Tests 10/02/25 02:49 Chemistry Test 10/01/25 13:56 10/02/25 02:49 Calcium Level 9.1 mg/dL (8.7-10.4) 9.1 mg/dL (8.7-10.4) Albumin 4.0 g/dL (3.2-4.8) Total Protein 6.9 g/dL (5.7-8.2) Cardiac Markers Test 10/01/25 13:56 B-Type Natriuretic Peptide 8.85 pg/mL (0-100) LFT Test 10/02/25 02:49 Alanine Aminotransferase (ALT) 32 U/L (7-40) Alkaline Phosphatase 121 U/L (46-116) H Aspartate Amino Transferase (AST) 26 U/L (13-40) Total Bilirubin 0.4 mg/dL (0.2-1.0) Urinalysis Test 10/02/25 05:00 Urine Color Yellow (Yellow) Urine Clarity Clear (Clear) Urine pH 5.5 (5.0-9.0) Urine Specific [place] 1.031 (1.001-1.035) Urine Protein 1+ (Negative) H Urine Ketones 1+ (Negative) H Urine Blood Negative /uL (Negative) Urine Nitrite Negative (Negative) Urine Bilirubin Negative (Negative) Urine Urobilinogen Normal mg/dL (Negative) Urine Leukocyte Esterase Negative /uL (Negative) Urine RBC 5 /hpf (0 - 3) Urine Microscopic WBC 4 /HPF (0-3) H Urine Squamous Epithelial Cells Few /hpf (<5) Urine Bacteria None seen /hpf (None Seen) Urine Mucus Few (None Seen) Urine Glucose Normal mg/dL (Normal) Labs and/or images reviewed: Labs reviewed by me, Image(s) reviewed by me Assessment/Plan Assessment/Plan Syncope: CT head shows old left-sided infarcts, no acute changes, cardiology consult by Dr. Sewell carotid ultrasound echocardiogram Hypertension Hypercholesterolemia History of stroke Depression: Celexa Moderate malnutrition Plan discussed with: Patient My Orders Orders - JENIFFER FARRELL MD Procedure Category Date Status Time Blood Culture ELIZABETH 10/02/25 Logged 12:57 Urine Bacterial ELIZABETH 10/02/25 Logged Culture 12:57 Ceftriaxone 1gm/50ml PHA 10/03/25 Logged (Rocephin) 09:00 Ceftriaxone 1gm/50ml PHA 10/02/25 Logged (Rocephin) 13:00 Date of Service: Oct 02, 2025 Billing Provider: JENIFFER FARRELL MD Common Visit Codes: [id number] INP/OBS CARE(HIGH) JENIFFER FARRELL MD Oct 02, 2025 13:10
--- NOTE | 2025-10-02 14:27 | DVH ---
Carotid Duplex Date: 10/02/2025 01:17 PM Clinical History: Syncope Comparison: US CAROTID DUPLX W COLOR DOP on DOS: 07/11/24, US CAROTID DUPLX W COLOR DOP on DOS: 06/07/23 Technique: Duplex Doppler evaluation of the extracranial carotid and vertebral arteries including color Doppler and spectral/pulsed waveform analysis was performed. Findings: RIGHT SIDE: The peak systolic velocities are 115 cm/s in the distal CCA and 93 cm/s in the proximal ICA.The ICA/CCA ratio is less than 1. The external carotid artery is patent with peak systolic velocity of 126 cm/s proximally. There is appropriate antegrade flow in the right vertebral artery. LEFT SIDE: The peak systolic velocities are 77 cm/s in the distal CCA and 148 cm/s in the proximal ICA.. The ICA/CCA ratio is less than 2. The external carotid artery is patent with peak systolic velocity of 90 cm/s proximally. There is appropriate antegrade flow in the left vertebral artery. IMPRESSION: 1. No hemodynamically significant stenosis noted in the right carotid system. 2. No hemodynamically significant stenosis noted in the left carotid system. 3. Reference: Radiology 2003; 229:[id number]
--- NOTE | 2025-10-02 15:09 | DVHINCON2 ---
Date Seen: Oct 02, 2025 Referring Physician Denis Reason for Consultation Syncope History of Present Illness 79-year-old male with PMH for HTN, CVA, HLD, tobacco use, alcohol use, history of cocaine use presents to the hospital with syncopal episode. Apparently patient has been having some diarrhea was on toilet when he became diaphoretic and ended up having syncopal episode. Upon evaluation at bedside patient does not remember syncopal episode. Patient altered intermittently since CVA. Information gathered mainly from chart review. Troponin negative x3. BNP negative. CXR negative for acute pathology. Past Medical History As stated above Past Surgical History As stated above Family History: Cardiovascular disease G8 FATHER Diabetes mellitus G8 SISTER FH: cancer G8 MOTHER G8 SISTER Allergies: Coded Allergies: NO KNOWN ALLERGIES (Unverified , 05/25/19) Home Meds Reported Medications Latanoprost (LATANOPROST) 0.005 % Mirian, 1 DROP EACHEYE 07/17/24 Ergocalciferol (Ergocalciferol) 8,000 Unit/Ml Mathieu, 1250 UNIT PO QWEEKLY, MATHIEU 07/11/24 Atorvastatin Calcium (ATORVASTATIN CALCIUM) 40 Mg Tab, 1 TAB PO DAILY, #30 TAB 5 Refills 07/11/24 Escitalopram Oxalate (ESCITALOPRAM OXALATE) 20 Mg Tab, 50 MG PO, TAB 07/11/24 Irbesartan (IRBESARTAN) 300 Mg Tab, 150 MG PO DAILY, TAB 07/11/24 Aspirin (Aspir-Low) 81 Mg Tab, 81 MG PO DAILY for 30 Days, MG 07/11/24 Current Medications Current Medications Medications (Trade) Dose Ordered Sig/Casey Route PRN Reason Start Time Stop Time Status Last Admin Aspirin 81 mg DAILY PO 10/02/25 10:00 10/02/25 09:04 Atorvastatin Calcium (Lipitor) 40 mg HS PO 10/01/25 22:00 10/01/25 22:39 Citalopram Hydrobromide (CeleXA TABLET) 40 mg DAILY PO 10/02/25 10:00 10/02/25 09:04 Sodium Chloride (Saline Lock Ns) 10 ml Q8HR IV 10/01/25 22:00 10/02/25 05:41 Acetaminophen/ Hydrocodone Bitart ([place] 5/325MG Tab) 1 tab Q4HP PRN PO MODERATE PAIN (4-6 PAIN SCALE) 10/01/25 21:30 Ondansetron HCl (Zofran) 4 mg Q4HP PRN IV NAUSEA / VOMITING 10/01/25 21:30 Docusate Sodium (Colace Capsule) 100 mg BIDPRN PRN PO FOR CONSTIPATION 10/01/25 21:30 Acetaminophen (Tylenol Tablet) 650 mg Q6HP PRN PO PAIN SCALE 1-3 OR TEMP>100.4 10/01/25 21:30 Nitroglycerin (Ntrostat Sublingual) 0.4 mg Q5MINP PRN SL FOR CHEST PAIN 10/01/25 21:30 Morphine Sulfate 2 mg Q30M PRN IV FOR CHEST PAIN 10/01/25 21:30 Clonidine HCl (Catapres Tablet) 0.1 mg Q4HP PRN PO SBP>150 10/02/25 08:00 Ceftriaxone Sodium 50 ml @ 100 mls/hr DAILY@09 IV 10/03/25 09:00 Review of Systems Constitutional: No: Fever, Chills, Sweats, Weakness, Malaise, Other Eyes: No: Pain, Vision change, Conjunctivae inflammation, Eyelid inflammation, Other, Redness ENT: No: Ear pain, Ear discharge, Nose pain, Nose discharge, Nose congestion, Mouth pain, Mouth swelling, Throat pain, Throat swelling, Other Respiratory: No: Cough, Dry, Shortness of breath, SOB with exertion, Wheezing, Hemoptysis, Pleuritic Pain, Sputum, Wheezing, Other Cardiovascular: ; No: Chest Pain Palpitations, Orthopnea, Paroxysmal Noc. Dyspnea, Edema, Lt Headedness, Other Gastrointestinal: No: Nausea, Vomiting, Abdominal Pain, Diarrhea, Constipation, Melena, Hematochezia, Other Genitourinary: No Dysuria, No Frequency, No Incontinence, No Hematuria, No Retention, No Other Musculoskeletal: neck pain; No: other, shoulder pain, arm pain, back pain, hand pain, leg pain, foot pain Skin: No: Rash, Lesions, Jaundice, Bruising, Other Neurological: Other (Dizziness, headache.); No: Weakness, Numbness, Incoordination, Change in speech, Confusion, Seizures Vital Signs Vital Signs Date Time Temp Pulse Resp B/P (MAP) Pulse Ox O2 Delivery O2 Flow Rate FiO2 10/02/25 13:00 97.6 65 17 132/79 (96) 98 97.6 10/02/25 04:26 Room Air* 0 21 Physical Exam General appearance: Patient is well-developed, well-nourished, in no acute distress. HEENT: Exam shows: Normocephalic, atraumatic, PERRLA, EOMI Neck: Supple, no bruits Chest: Equal chest excursion bilaterally. Breath sounds normal-no rales or wheezes. Heart: Rhythm: Regular rate; no murmur or gallop Abdomen: Exam shows: Soft, nontender, nondistended Musculoskeletal: No clubbing, no cyanosis, no lower extremity edema Dermatology: Skin warm, moist. Neurological: Exam shows: Alert and oriented x2, normal speech Available prior records, labs, EKG, rhythm strips reviewed and interpreted Labs/Diagnostic Data Labs Test 10/02/25 05:00 10/02/25 02:49 10/01/25 17:00 10/01/25 13:56 Range/Units Urine Color Yellow Yellow Urine Clarity Clear Clear Urine pH 5.5 5.0-9.0 Urine Specific [place] 1.031 1.001-1.035 Urine Protein 1+ H Negative Urine Ketones 1+ H Negative Urine Blood Negative Negative /uL Urine Nitrite Negative Negative Urine Bilirubin Negative Negative Urine Urobilinogen Normal Negative mg/dL Urine Leukocyte Esterase Negative Negative /uL Urine RBC 5 0 - 3 /hpf Urine Microscopic WBC 4 H 0-3 /HPF Urine Squamous Epithelial Cells Few <5 /hpf Urine Bacteria None seen None Seen /hpf Urine Mucus Few None Seen Urine Glucose Normal Normal mg/dL White Blood Count 5.1 4.4-10.8 10^3/uL Red Blood Count 4.09 L 4.5-5.90 10^6/uL Hemoglobin 12.7 L 13.5-17.5 g/dL Hematocrit 37.4 L 41.0-53.0 % Mean Corpuscular Volume 91.4 80.0-100.0 fL Mean Corpuscular Hemoglobin 31.2 28.0-32.0 pg Mean Corpuscular Hemoglobin Concent 34.1 32.0-36.0 g/dL Red Cell Distribution Width 15.1 H 11.8-14.3 % Platelet Count 234 140-450 10^3/uL Mean Platelet Volume 7.9 6.9-10.8 fL Neutrophils (%) (Auto) 55.2 37.0-80.0 % Lymphocytes (%) (Auto) 30.7 10.0-50.0 % Monocytes (%) (Auto) 13.5 H 0.0-12.0 % Eosinophils (%) (Auto) 0.2 0.0-7.0 % Basophils (%) (Auto) 0.4 0.0-2.0 % Neutrophils # (Auto) 2.8 1.6-8.6 10 ^3/uL Lymphocytes # (Auto) 1.6 0.4-5.4 10 ^3/uL Monocytes # (Auto) 0.7 0-1.3 10 ^3/uL Eosinophils # (Auto) 0 0-0.8 10 ^3/uL Basophils # (Auto) 0 0-0.2 10 ^3/uL Nucleated Red Blood Cells 0.1 % Sodium Level 141 136-145 mmol/L Potassium Level 3.9 3.5-5.1 mmol/L Chloride Level 107 98-107 mmol/L Carbon Dioxide Level 23 20-31 mmol/L Anion Gap 11 5-15 Blood Urea Nitrogen 12 9-23 mg/dL Creatinine 0.88 0.700-1.30 mg/dL Glomerular Filtration Rate Calc 87 >90 mL/min BUN/Creatinine Ratio 13.6 10.0-20.0 Serum Glucose 98 74-106 mg/dL Calcium Level 9.1 8.7-10.4 mg/dL Total Bilirubin 0.4 0.2-1.0 mg/dL Aspartate Amino Transferase (AST) 26 13-40 U/L Alanine Aminotransferase (ALT) 32 7-40 U/L Alkaline Phosphatase 121 H 46-116 U/L Total Protein 6.9 5.7-8.2 g/dL Albumin 4.0 3.2-4.8 g/dL Troponin I High Sensitivity 5 </=54 ng/L B-Type Natriuretic Peptide 8.85 0-100 pg/mL Assessment * Syncope and collapse - CT head negative. Carotid ultrasound negative for significant stenosis bilaterally. 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 Likely vasovagal possible dehydration if having diarrhea. Check orthostatics. Follow up echocardiogram if no significant abnormalities found, continue with outpatient during monitoring. * HTN - stable, continue trending. * HLD - on statin * HX CVA -continue aspirin and statin. Case Discussed with Dr Sewell. No significant events noted on telemetry review. HR and BP stable. Check orthostatics. Follow up echo. If no significant abnormalities on echo continue with outpatient event monitoring. This medical document was created using an electronic medical record system with voice recognition software and computerized dictation system. Although this document has been carefully reviewed, there might still be some phonetic and typographical errors. Occasional wrong-word or ``sound-alike substitutions may have occurred due to the inherent limitations of voice recognition software. These areas are purely typographical due to imperfections of the software programs and do not reflect any compromise in the patient's medical care. Please read the chart carefully and recognize, using context, where these substitutions have occurred. Thank you for allowing me to participate in the management of this patient. The treatment plan was discussed with and agreed upon by patient/family including requesting consultants and ordering of imaging/procedures. Plan discussed with: Patient NYHA Physical activity limitations: NA Date of Service: Oct 02, 2025 Billing Provider: BHARGAV MADISON Cardiology Common Codes: [id number] INP/OBS CARE (High) BHARGAV MADISON Oct 02, 2025 15:09
[2025-10-03] VITALS (8 sets, daily range): BP systolic 122–150; BP diastolic 67–80; PULSE 65–86; RESP 18; TEMP 98–99.4; O2SAT 94–99
--- NOTE | 2025-10-03 13:24 | DVHPN2 ---
Reviewed: Care Plan, H&P, Labs, Medications, Previous Orders, Radiology Changes from previous H/P or p: No Changes Eyes: No Pain, No Vision change, No Conjunctivae inflammation, No Eyelid inflammation, No Other, No Redness ENT: No Ear pain, No Ear discharge, No Nose pain, No Nose discharge, No Nose congestion, No Mouth pain, No Mouth swelling, No Throat pain, No Throat swelling, No Other Cardiovascular: No Chest Pain, No Palpitations, No Orthopnea, No Paroxysmal Noc. Dyspnea, No Edema, No Lt Headedness; Other (Syncope) Respiratory: No Cough, No Dry, No Shortness of breath, No SOB with excertion, No Wheezing, No Hemoptysis, No Pleuritic Pain, No Sputum, No Other Gastrointestinal: No Nausea, No Vomiting, No Abdominal Pain, No Diarrhea, No Constipation, No Melena, No Hematochezia, No Other Genitourinary: No Dysuria, No Frequency, No Incontinence, No Hematuria, No Retention, No Other Musculoskeletal: No other, No neck pain, No shoulder pain, No arm pain, No back pain, No hand pain, No leg pain, No foot pain Skin: No Rash, No Lesions, No Jaundice, No Bruising, No Other Objective Vitals Vital Signs Date Time Temp Pulse Resp B/P (MAP) Pulse Ox O2 Delivery O2 Flow Rate FiO2 10/03/25 13:01 98.6 74 18 142/80 (100) 98 98.6 10/03/25 08:00 Room Air* 0 21 Intake/Output Intake and Output 10/03/25 07:00 Intake Total 1050 ml Output Total 500 ml Balance 550 ml Intake Oral 1050 ml Output Urine Total 500 ml # Voids 3 # Bowel Movements 1 Medications Current Medications Medications Dose Ordered Sig/Casey Route Start Time Stop Time Status Last Admin Dose Admin Aspirin 81 mg DAILY PO 10/02/25 10:00 10/03/25 09:51 81 MG Atorvastatin Calcium 40 mg HS PO 10/01/25 22:00 10/02/25 22:14 40 MG Citalopram Hydrobromide 40 mg DAILY PO 10/02/25 10:00 10/03/25 09:51 40 MG Sodium Chloride 10 ml Q8HR IV 10/01/25 22:00 10/03/25 05:32 10 ML Acetaminophen/ Hydrocodone Bitart 1 tab Q4HP PRN PO 10/01/25 21:30 Ondansetron HCl 4 mg Q4HP PRN IV 10/01/25 21:30 Docusate Sodium 100 mg BIDPRN PRN PO 10/01/25 21:30 Acetaminophen 650 mg Q6HP PRN PO 10/01/25 21:30 Nitroglycerin 0.4 mg Q5MINP PRN SL 10/01/25 21:30 Morphine Sulfate 2 mg Q30M PRN IV 10/01/25 21:30 Clonidine HCl 0.1 mg Q4HP PRN PO 10/02/25 08:00 Ceftriaxone Sodium 50 ml @ 100 mls/hr DAILY@09 IV 10/03/25 09:00 10/03/25 09:52 100 MLS/HR Laboratory Results Laboratory Tests 10/02/25 02:49 Urinalysis Test 10/02/25 05:00 Urine Color Yellow (Yellow) Urine Clarity Clear (Clear) Urine pH 5.5 (5.0-9.0) Urine Specific [place] 1.031 (1.001-1.035) Urine Protein 1+ (Negative) H Urine Ketones 1+ (Negative) H Urine Blood Negative /uL (Negative) Urine Nitrite Negative (Negative) Urine Bilirubin Negative (Negative) Urine Urobilinogen Normal mg/dL (Negative) Urine Leukocyte Esterase Negative /uL (Negative) Urine RBC 5 /hpf (0 - 3) Urine Microscopic WBC 4 /HPF (0-3) H Urine Squamous Epithelial Cells Few /hpf (<5) Urine Bacteria None seen /hpf (None Seen) Urine Mucus Few (None Seen) Urine Glucose Normal mg/dL (Normal) Microbiology Microbiology Date/Time Source Procedure Growth Status 10/02/25 05:00 Voided Urine Urine Culture - Preliminary No growth Resulted Labs and/or images reviewed: Labs reviewed by me, Image(s) reviewed by me Assessment/Plan Assessment/Plan Syncope: CT head shows old left-sided infarcts, no acute changes, cardiology consult by Dr. Sewell carotid ultrasound negative echocardiogram result pending Hypertension Hypercholesterolemia History of stroke Depression: Celexa Moderate malnutrition Physical therapy ordered Plan discussed with: Patient Date of Service: Oct 03, 2025 Billing Provider: JENIFFER FARRELL MD Common Visit Codes: [id number] INP/OBS CARE(HIGH) JENIFFER FARRELL MD Oct 03, 2025 13:24
--- NOTE | 2025-10-03 13:56 | DVHPN2 ---
Progress Note - Dictate Date Seen: Oct 03, 2025 Medical Necessity Reason Pt with a Central, PICC or Fol: No Subjective PT WITH SYNCOPE TROPONIN NEGATIVE TELE NEGATIVE NO ORTHOSTATIC CHANGES HX OF COPD CHRONIC TOBACCO USE CVA HTN ETOH ABUSE vital signs Vital Sign Date Time Temp Pulse Resp B/P (MAP) Pulse Ox O2 Delivery O2 Flow Rate FiO2 10/03/25 13:01 98.6 74 18 142/80 (100) 98 98.6 10/03/25 08:00 Room Air* 0 21 Total Intake and Output 10/02/25 10/02/25 10/03/25 15:00 23:00 07:00 Intake Total 650 ml 400 ml Output Total 500 ml Balance 650 ml -100 ml medications Current Medications Medications Dose Ordered Sig/Casey Route Start Time Stop Time Status Last Admin Dose Admin Aspirin 81 mg DAILY PO 10/02/25 10:00 10/03/25 09:51 81 MG Atorvastatin Calcium 40 mg HS PO 10/01/25 22:00 10/02/25 22:14 40 MG Citalopram Hydrobromide 40 mg DAILY PO 10/02/25 10:00 10/03/25 09:51 40 MG Sodium Chloride 10 ml Q8HR IV 10/01/25 22:00 10/03/25 05:32 10 ML Acetaminophen/ Hydrocodone Bitart 1 tab Q4HP PRN PO 10/01/25 21:30 Ondansetron HCl 4 mg Q4HP PRN IV 10/01/25 21:30 Docusate Sodium 100 mg BIDPRN PRN PO 10/01/25 21:30 Acetaminophen 650 mg Q6HP PRN PO 10/01/25 21:30 Nitroglycerin 0.4 mg Q5MINP PRN SL 10/01/25 21:30 Morphine Sulfate 2 mg Q30M PRN IV 10/01/25 21:30 Clonidine HCl 0.1 mg Q4HP PRN PO 10/02/25 08:00 Ceftriaxone Sodium 50 ml @ 100 mls/hr DAILY@09 IV 10/03/25 09:00 10/03/25 09:52 100 MLS/HR laboratory and microbiology Laboratory Tests 10/02/25 02:49 Test 10/02/25 02:49 Range/Units Serum Glucose 98 74-106 mg/dL Problem List SYNCOPE TROPONIN NEGATIVE TELE NEGATIVE NO ORTHOSTATIC CHANGES HX OF COPD CHRONIC TOBACCO USE CVA HTN ETOH ABUSE Assessment/Plan CHECK TELE TOXIC SCREEN ECHO LVH EF >55% DIASTOLIC DYSFUNCTION Plan discussed with: Patient HAL ORDONEZ MD Oct 03, 2025 13:56
[2025-10-04] VITALS (8 sets, daily range): BP systolic 135–152; BP diastolic 70–84; PULSE 68–73; RESP 16–18; TEMP 97.6–98.5; O2SAT 94–99
--- NOTE | 2025-10-04 10:45 | DVHPN2 ---
Reviewed: Care Plan, H&P, Labs, Medications, Previous Orders, Radiology Changes from previous H/P or p: No Changes Eyes: No Pain, No Vision change, No Conjunctivae inflammation, No Eyelid inflammation, No Other, No Redness ENT: No Ear pain, No Ear discharge, No Nose pain, No Nose discharge, No Nose congestion, No Mouth pain, No Mouth swelling, No Throat pain, No Throat swelling, No Other Cardiovascular: No Chest Pain, No Palpitations, No Orthopnea, No Paroxysmal Noc. Dyspnea, No Edema, No Lt Headedness; Other (Syncope) Respiratory: No Cough, No Dry, No Shortness of breath, No SOB with excertion, No Wheezing, No Hemoptysis, No Pleuritic Pain, No Sputum, No Other Gastrointestinal: No Nausea, No Vomiting, No Abdominal Pain, No Diarrhea, No Constipation, No Melena, No Hematochezia, No Other Genitourinary: No Dysuria, No Frequency, No Incontinence, No Hematuria, No Retention, No Other Musculoskeletal: No other, No neck pain, No shoulder pain, No arm pain, No back pain, No hand pain, No leg pain, No foot pain Skin: No Rash, No Lesions, No Jaundice, No Bruising, No Other Objective Vitals Vital Signs Date Time Temp Pulse Resp B/P (MAP) Pulse Ox O2 Delivery O2 Flow Rate FiO2 10/04/25 09:00 98.5 68 18 135/76 (95) 96 98.5 10/04/25 07:55 Room Air* 0 21 Intake/Output Intake and Output 10/04/25 07:00 Intake Total 1000 ml Output Total 1400 ml Balance -400 ml Intake Oral 1000 ml Output Urine Total 1400 ml Medications Current Medications Medications Dose Ordered Sig/Casey Route Start Time Stop Time Status Last Admin Dose Admin Aspirin 81 mg DAILY PO 10/02/25 10:00 10/04/25 09:34 81 MG Atorvastatin Calcium 40 mg HS PO 10/01/25 22:00 10/03/25 21:40 40 MG Citalopram Hydrobromide 40 mg DAILY PO 10/02/25 10:00 10/04/25 09:34 40 MG Sodium Chloride 10 ml Q8HR IV 10/01/25 22:00 10/04/25 05:36 10 ML Acetaminophen/ Hydrocodone Bitart 1 tab Q4HP PRN PO 10/01/25 21:30 Ondansetron HCl 4 mg Q4HP PRN IV 10/01/25 21:30 Docusate Sodium 100 mg BIDPRN PRN PO 10/01/25 21:30 Acetaminophen 650 mg Q6HP PRN PO 10/01/25 21:30 Nitroglycerin 0.4 mg Q5MINP PRN SL 10/01/25 21:30 Morphine Sulfate 2 mg Q30M PRN IV 10/01/25 21:30 Clonidine HCl 0.1 mg Q4HP PRN PO 10/02/25 08:00 Ceftriaxone Sodium 50 ml @ 100 mls/hr DAILY@09 IV 10/03/25 09:00 10/04/25 09:33 100 MLS/HR Laboratory Results Laboratory Tests 10/02/25 02:49 Urinalysis Test 10/02/25 05:00 Urine Color Yellow (Yellow) Urine Clarity Clear (Clear) Urine pH 5.5 (5.0-9.0) Urine Specific [place] 1.031 (1.001-1.035) Urine Protein 1+ (Negative) H Urine Ketones 1+ (Negative) H Urine Blood Negative /uL (Negative) Urine Nitrite Negative (Negative) Urine Bilirubin Negative (Negative) Urine Urobilinogen Normal mg/dL (Negative) Urine Leukocyte Esterase Negative /uL (Negative) Urine RBC 5 /hpf (0 - 3) Urine Microscopic WBC 4 /HPF (0-3) H Urine Squamous Epithelial Cells Few /hpf (<5) Urine Bacteria None seen /hpf (None Seen) Urine Mucus Few (None Seen) Urine Glucose Normal mg/dL (Normal) Microbiology Microbiology Date/Time Source Procedure Growth Status 10/02/25 13:50 Blood Blood Culture - Preliminary NO GROWTH AFTER 24 HOURS OF INCUBATION. 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 Sewell carotid ultrasound negative echocardiogram 55 percent ejection fraction Hypertension Hypercholesterolemia History of stroke Depression: Celexa Moderate malnutrition Physical therapy ordered Urine Drug screen pending Plan discussed with: Patient My Orders Orders - JENIFFER FARRELL MD Procedure Category Date Status Time Pt Request For Service PT 10/03/25 Logged 13:24 Drug Screen LAB 10/04/25 Transmitted 10:36 Date of Service: Oct 04, 2025 Billing Provider: JENIFFER FARRELL MD Common Visit Codes: [id number] INP/OBS CARE(HIGH) JENIFFER FARRELL MD Oct 04, 2025 10:45
--- NOTE | 2025-10-04 16:00 | DVHPN2 ---
Progress Note - Dictate Date Seen: Oct 04, 2025 Medical Necessity Reason Pt with a Central, PICC or Fol: No Subjective PT WITH SYNCOPE TROPONIN NEGATIVE TELE NEGATIVE NO ORTHOSTATIC CHANGES HX OF COPD CHRONIC TOBACCO USE CVA HTN ETOH ABUSE vital signs Vital Sign Date Time Temp Pulse Resp B/P (MAP) Pulse Ox O2 Delivery O2 Flow Rate FiO2 10/04/25 13:00 97.7 72 18 152/84 (106) 98 97.7 10/04/25 07:55 Room Air* 0 21 Total Intake and Output 10/03/25 10/03/25 10/04/25 15:00 23:00 07:00 Intake Total 400 ml 600 ml Output Total 800 ml 600 ml Balance -400 ml 0 ml medications Current Medications Medications Dose Ordered Sig/Casey Route Start Time Stop Time Status Last Admin Dose Admin Aspirin 81 mg DAILY PO 10/02/25 10:00 10/04/25 09:34 81 MG Atorvastatin Calcium 40 mg HS PO 10/01/25 22:00 10/03/25 21:40 40 MG Citalopram Hydrobromide 40 mg DAILY PO 10/02/25 10:00 10/04/25 09:34 40 MG Sodium Chloride 10 ml Q8HR IV 10/01/25 22:00 10/04/25 05:36 10 ML Acetaminophen/ Hydrocodone Bitart 1 tab Q4HP PRN PO 10/01/25 21:30 Ondansetron HCl 4 mg Q4HP PRN IV 10/01/25 21:30 Docusate Sodium 100 mg BIDPRN PRN PO 10/01/25 21:30 Acetaminophen 650 mg Q6HP PRN PO 10/01/25 21:30 Nitroglycerin 0.4 mg Q5MINP PRN SL 10/01/25 21:30 Morphine Sulfate 2 mg Q30M PRN IV 10/01/25 21:30 Clonidine HCl 0.1 mg Q4HP PRN PO 10/02/25 08:00 Ceftriaxone Sodium 50 ml @ 100 mls/hr DAILY@09 IV 10/03/25 09:00 10/04/25 09:33 100 MLS/HR laboratory and microbiology Laboratory Tests 10/02/25 02:49 Test 10/02/25 02:49 Range/Units Serum Glucose 98 74-106 mg/dL Problem List SYNCOPE TROPONIN NEGATIVE TELE NEGATIVE NO ORTHOSTATIC CHANGES HX OF COPD CHRONIC TOBACCO USE CVA HTN ETOH ABUSE Assessment/Plan CHECK TELE TOXIC SCREEN ECHO LVH EF >55% DIASTOLIC DYSFUNCTION Plan discussed with: Patient HAL ORDONEZ MD Oct 04, 2025 16:00
[2025-10-05 00:54] VITALS: BP 139/77; PULSE 70; RESP 18; TEMP 98.5; O2SAT 98
[2025-10-05 04:56] VITALS: BP 141/76; PULSE 67; RESP 20; TEMP 97.3; O2SAT 99
[2025-10-05 08:00] VITALS: PULSE 67; RESP 18; O2SAT 98
[2025-10-05 09:00] VITALS: BP 151/84; PULSE 70; RESP 18; TEMP 98; O2SAT 98
--- NOTE | 2025-10-05 11:05 | DVHDS2 ---
Discharge Summary Date of Admission Oct 01, 2025 at 21:17 Date of Discharge: Oct 05, 2025 Admitting Diagnosis Syncope and fall Wounds: None Labs/Diagnostic Data: Laboratory Results Test 10/04/25 05:00 10/02/25 05:00 10/02/25 02:49 10/01/25 17:00 Urine Color Yellow (Yellow) Urine Clarity Clear (Clear) Urine pH 5.5 (5.0-9.0) Urine Specific Anna 1.031 (1.001-1.035) Urine Protein 1+ (Negative) Urine Ketones 1+ (Negative) Urine Blood Negative /uL (Negative) Urine Nitrite Negative (Negative) Urine Bilirubin Negative (Negative) Urine Urobilinogen Normal mg/dL (Negative) Urine Leukocyte Esterase Negative /uL (Negative) Urine RBC 5 /hpf (0 - 3) Urine Microscopic WBC 4 /HPF (0-3) Urine Squamous Epithelial Cells Few /hpf (<5) Urine Bacteria None seen /hpf (None Seen) Urine Mucus Few (None Seen) Urine Glucose Normal mg/dL (Normal) White Blood Count 5.1 10^3/uL (4.4-10.8) Red Blood Count 4.09 10^6/uL (4.5-5.90) Hemoglobin 12.7 g/dL (13.5-17.5) Hematocrit 37.4 % (41.0-53.0) Mean Corpuscular Volume 91.4 fL (80.0-100.0) Mean Corpuscular Hemoglobin 31.2 pg (28.0-32.0) Mean Corpuscular Hemoglobin Concent 34.1 g/dL (32.0-36.0) Red Cell Distribution Width 15.1 % (11.8-14.3) Platelet Count 234 10^3/uL (140-450) Mean Platelet Volume 7.9 fL (6.9-10.8) Neutrophils (%) (Auto) 55.2 % (37.0-80.0) Lymphocytes (%) (Auto) 30.7 % (10.0-50.0) Monocytes (%) (Auto) 13.5 % (0.0-12.0) Eosinophils (%) (Auto) 0.2 % (0.0-7.0) Basophils (%) (Auto) 0.4 % (0.0-2.0) Neutrophils # (Auto) 2.8 10 ^3/uL (1.6-8.6) Lymphocytes # (Auto) 1.6 10 ^3/uL (0.4-5.4) Monocytes # (Auto) 0.7 10 ^3/uL (0-1.3) Eosinophils # (Auto) 0 10 ^3/uL (0-0.8) Basophils # (Auto) 0 10 ^3/uL (0-0.2) Nucleated Red Blood Cells 0.1 % Sodium Level 141 mmol/L (136-145) Potassium Level 3.9 mmol/L (3.5-5.1) Chloride Level 107 mmol/L (98-107) Carbon Dioxide Level 23 mmol/L (20-31) Anion Gap 11 (5-15) Blood Urea Nitrogen 12 mg/dL (9-23) Creatinine 0.88 mg/dL (0.700-1.30) Glomerular Filtration Rate Calc 87 mL/min (>90) BUN/Creatinine Ratio 13.6 (10.0-20.0) Serum Glucose 98 mg/dL (74-106) Calcium Level 9.1 mg/dL (8.7-10.4) Total Bilirubin 0.4 mg/dL (0.2-1.0) Aspartate Amino Transferase (AST) 26 U/L (13-40) Alanine Aminotransferase (ALT) 32 U/L (7-40) Alkaline Phosphatase 121 U/L (46-116) Total Protein 6.9 g/dL (5.7-8.2) Albumin 4.0 g/dL (3.2-4.8) Troponin I High Sensitivity 5 ng/L (</=54) Test 10/01/25 13:56 B-Type Natriuretic Peptide 8.85 pg/mL (0-100) Other Laboratory Tests 10/02/25 02:49 Brief Hx & Hospital Course: 59-year-old male with a history of hypertension hypercholesterolemia depression history of stroke burden by family for syncope and fall at home. 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 Echocardiogram 55 percent ejection fraction seen by Cardiology Dr. Nichols. Carotid ultrasound is negative physical therapy evaluated and recommended shelter facility placement for rehab and physical therapy . discussed the plan with the patient and and they are agreeable Consults/Reason for consult Neurology Cardiology Operations or Procedures CT head Condition at Discharge: Fair Final Diagnosis/Problems List Syncope and fall at home CT head shows old left-sided infarcts, no acute changes, cardiology consult by Dr. Sewell carotid ultrasound negative echocardiogram 55 percent ejection fraction Hypertension Hypercholesterolemia History of stroke Depression: Celexa Moderate malnutrition Discharge Disposition: [facility] Discharge Instruct/Medications Diet: Cardiac 2g Na,low cholest Activity: Light activity Follow Up/Referral: Follow up with the longterm Medications: see list Scheduled Aspirin (Aspir-Low), 81 MG PO DAILY, (Reported) Atorvastatin Calcium (Atorvastatin Calcium), 1 TAB PO DAILY, (Reported) Ergocalciferol (Ergocalciferol), 1,250 UNIT PO QWEEKLY, (Reported) Irbesartan (Irbesartan), 150 MG PO DAILY, (Reported) Miscellaneous Medications Escitalopram Oxalate (Escitalopram Oxalate), 50 MG PO, (Reported) Latanoprost (Latanoprost), 1 DROP EACHEYE, (Reported) 39 (Time taken for discharge summary 39 minutes) Discharge Statement: "Patient was advised to return to the ER or call 911 if any headaches, dizziness, shortness of breath, chest pain, abdominal pain, bleeding, fevers, or worsening of medical condition. Patient was counseled about treatment plan, medications, possible side effects, patientverbalized understanding. All questions were answered to the best of my ability. This discharge took greater then 30 minutes in planning, reviewing documentation, counseling the patient, and discussing with other team members." ASSESSMENT ASSESSMENT Hospital Course Improved Assessment Syncope and fall at home CT head shows old left-sided infarcts, no acute changes, cardiology consult by Dr. Sewell carotid ultrasound negative echocardiogram 55 percent ejection fraction Hypertension Hypercholesterolemia History of stroke Depression: Celexa Moderate malnutrition Date of Service: Oct 05, 2025 Billing Provider: JENIFFER FARRELL MD Common Visit Codes: 03095-ZZO/OBS DISCH DAY >30min JENIFFER FARRELL MD Oct 05, 2025 11:05
[2025-10-05 13:00] VITALS: BP 149/81; PULSE 63; RESP 18; TEMP 98.5; O2SAT 99
--- NOTE | 2025-10-05 15:41 | DVHPN2 ---
Progress Note - Dictate Date Seen: Oct 05, 2025 Medical Necessity Reason Pt with a Central, PICC or Fol: No Subjective PT WITH SYNCOPE TROPONIN NEGATIVE TELE NEGATIVE NO ORTHOSTATIC CHANGES HX OF COPD CHRONIC TOBACCO USE CVA HTN ETOH ABUSE vital signs Vital Sign Date Time Temp Pulse Resp B/P (MAP) Pulse Ox O2 Delivery O2 Flow Rate FiO2 10/05/25 13:00 98.5 63 18 149/81 (103) 99 98.5 10/05/25 08:00 Room Air* 0 21 Total Intake and Output 10/04/25 10/04/25 10/05/25 15:00 23:00 07:00 Intake Total 840 ml 330 ml Output Total 550 ml 330 ml Balance 290 ml 0 ml medications Current Medications Medications Dose Ordered Sig/Casey Route Start Time Stop Time Status Last Admin Dose Admin Aspirin 81 mg DAILY PO 10/02/25 10:00 10/05/25 08:51 81 MG Atorvastatin Calcium 40 mg HS PO 10/01/25 22:00 10/04/25 22:13 40 MG Citalopram Hydrobromide 40 mg DAILY PO 10/02/25 10:00 10/05/25 08:50 40 MG Sodium Chloride 10 ml Q8HR IV 10/01/25 22:00 10/05/25 14:24 10 ML Acetaminophen/ Hydrocodone Bitart 1 tab Q4HP PRN PO 10/01/25 21:30 Ondansetron HCl 4 mg Q4HP PRN IV 10/01/25 21:30 Docusate Sodium 100 mg BIDPRN PRN PO 10/01/25 21:30 Acetaminophen 650 mg Q6HP PRN PO 10/01/25 21:30 Nitroglycerin 0.4 mg Q5MINP PRN SL 10/01/25 21:30 Morphine Sulfate 2 mg Q30M PRN IV 10/01/25 21:30 Clonidine HCl 0.1 mg Q4HP PRN PO 10/02/25 08:00 Ceftriaxone Sodium 50 ml @ 100 mls/hr DAILY@09 IV 10/03/25 09:00 10/05/25 08:50 100 MLS/HR laboratory and microbiology Laboratory Tests 10/02/25 02:49 Test 10/02/25 02:49 Range/Units Serum Glucose 98 74-106 mg/dL Problem List SYNCOPE TROPONIN NEGATIVE TELE NEGATIVE NO ORTHOSTATIC CHANGES HX OF COPD CHRONIC TOBACCO USE CVA HTN ETOH ABUSE Assessment/Plan CHECK TELE TOXIC SCREEN ECHO LVH EF >55% DIASTOLIC DYSFUNCTION Plan discussed with: Patient HAL ORDONEZ MD Oct 05, 2025 15:41
--- NOTE | 2025-10-13 10:06 | DVHSR ---
APPROVED REPORT EXAM: Two-dimensional and M-mode echocardiogram with Doppler and color Doppler. Blood Pressure: 132/79 mmHg INDICATION Syncope RISK FACTORS Height: 5'9", Weight: 180 DIMENSIONS LVDd 3.1 (3.8-5.7cm) LA (2D) 3.7 (1.9-4.0cm) Aortic Root 3.3 (2.0-3.7cm) LVDs 2.2 (2.5-4.0cm) LA (MM) (1.9-4.0cm) Aortic Cusp Exc 1.9 (1.5-2.0cm) EF (%) 55.0 (55-70%) Rt. Atrium 3.6 (1.9-4.0cm) Asc. Aorta cm IVSd 1.1 (0.7-1.1cm) RV (D) (1.8-2.4cm) PWd 1.0 (0.7-1.1cm) Mitral Valve Mitral Mitral Stenosis E wave 0.60m/s MV Mean GR. mmHg A wave 1.01m/s MV Peak GR. mmHg E/A ratio 0.6 2D MVA cm2 DECEL Time 267ms PRESS 1/2 Time ms Aortic Valve Aortic Valve Aortic Stenosis V1 0.94m/s AO Mean GR. 3mmHg V2 1.31m/s AO Peak GR. 7mmHg LVOT Diameter 2.0 (1.8-2.4cm) Doppler SHAMEKA 2.25cm2 Pulmonic Valve V2 1.17m/s Other Information Technically limited study due to body habitus. Conclusion lvef 60% by visual estimate mild LVH normal rv function no sevfere valve abnormaity noted
== END 2025-10-05 16:40 | DRG 74 ==
LOC: EDBD 10:46 → ER 10:46 → OVERFLOW 21:17 → TELE-WESTW 10-02 04:06
PROVIDERS: ADMIT Family Medicine; ATTEND Family Medicine
DX: G90.89 Other disorders of autonomic nervous system (principal); E44.0 Moderate protein-calorie malnutrition; I10 Essential (primary) hypertension; F32.A Depression, unspecified; J44.9 Chronic obstructive pulmonary disease, unspecified; E78.00 Pure hypercholesterolemia, unspecified; F17.210 Nicotine dependence, cigarettes, uncomplicated; Z86.73 Personal history of transient ischemic attack (TIA), and cerebral infarction without residual deficits; Z82.49 Family history of ischemic heart disease and other diseases of the circulatory system; Z83.3 Family history of diabetes mellitus; Z68.26 Body mass index [BMI] 26.0-26.9, adult
CPT/HCPCS: 36415; 70450; 71045; 80048; 80053; 81001; 83880; 84484; 85025; 87040; 87086; 93005; 93306; 93886; 97110; 97116; 97162; 97530; 99291; G0378